=== PATIENT | male | born 1975 | race Caucasian/White ===

== ENCOUNTER 2024-04-25 19:31 | Inpatient (IN) | payer MEDICAID ==
[2024-04-25] MEDS: SODIUM CHLORIDE 0.9% 1,000 ML IV STA (21:19)
[2024-04-25 21:27] LABS: Basophils % (A) 0 %; Eosinophils # (A) 0.2 k/uL (0-0.7); Eosinophils % (A) 2 %; HCT 45.3 % (39.0-53.0); HGB 15.3 gm/dL (13.0-17.5); Lymphocytes # (A) 1.6 k/uL (1.0-4.8); Lymphocytes % (A) 13 %; MCH 29.7 pg (25.0-35.0); MCHC 33.8 g/dL (31.0-37.0); MCV 87.6 fL (80.0-100.0); Mean Platelet Volume 8.2; Monocytes # (A) 0.6 k/uL (0-1.0); Monocytes % (A) 5 %; Neutrophils # (A) 9.7 k/uL (1.3-7.7); Neutrophils % (A) 80 %; Platelet Count 233 k/uL (150-450); RBC 5.17 m/uL (4.30-5.90); RDW 13.7 % (11.5-15.5); WBC 12.2 k/uL (3.8-10.6)
--- NOTE | 2024-04-25 21:36 | ED ---
General Adult HPI - General Chief complaint: Skin/Abscess/Foreign Body Stated complaint: abd abcess Time Seen by Provider: 04/25/24 20:21 Source: patient, RN notes reviewed Mode of arrival: ambulatory Limitations: no limitations - History of Present Illness Initial comments: 48-year-old male presenting to the ED with a chief complaint of skin infection. Patient states he woke up with what he thought was a bug bite on his right lower abdomen 5 days ago. Since then he notes growing abscess which has spontaneously popped and has been draining purulent fluid. Denies fever and chills. However, patient states that his noticed redness to his abdomen starting yesterday which has since spread increasingly across his abdomen. 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 Patient also has a history of type 2 diabetes. - Related Data Allergies Allergy/AdvReac Type Severity Reaction Status Date / Time No Known Allergies Allergy Verified 04/25/24 19:47 Review of Systems ROS Statement: Those systems with pertinent positive or pertinent negative responses have been documented in the HPI. ROS Other: All systems not noted in ROS Statement are negative. Past Medical History Past Medical History: Asthma, Diabetes Mellitus, Hypertension Additional Past Medical History / Comment(s): arrythymia Past Surgical History: Appendectomy Past Psychological History: No Psychological Hx Reported Smoking Status: Never smoker Past Alcohol Use History: None Reported Past Drug Use History: None Reported General Exam Limitations: no limitations General appearance: alert, in no apparent distress Eye exam: Present: normal appearance Neck exam: Present: normal inspection Respiratory exam: Present: normal lung sounds bilaterally Cardiovascular Exam: Present: regular rate GI/Abdominal exam: Present: soft, other (2 x 2 abscess which is draining purulent fluid on his right lower abdomen with surrounding warmth erythema of the right abdomen measuring approximately 24 x 12 cm.) Neurological exam: Present: alert, oriented X3 Skin exam: Present: warm, dry Course Vital Signs 04/25/24 04/25/24 19:42 22:50 Temperature 98.0 F Pulse Rate 108 H 71 Respiratory 22 18 Rate Blood Pressure 131/86 119/73 O2 Sat by Pulse 97 95 Oximetry Medical Decision Making - Medical Decision Making Was pt. sent in by a medical professional or institution (, PA, [facility], urgent care, hospital, or snf...) When possible be specific @ -No Did you speak to anyone other than the patient for history (EMS, parent, family, police, friend...)? What history was obtained from this source @ -Discussed with sound physician who accepts admission. Did you review nursing and triage notes (agree or disagree)? Why? @ -I reviewed and agree with nursing and triage notes Were old charts reviewed (outside hosp., previous admission, EMS record, old EKG, old radiological studies, urgent care reports/EKG's, snf records)? Report findings @ -No old charts were reviewed Differential Diagnosis (chest pain, altered mental status, abdominal pain women, abdominal pain men, vaginal bleeding, weakness, fever, dyspnea, syncope, headache, dizziness, GI bleed, back pain, seizure, CVA, palpatations, mental health, musculoskeletal)? @ -Differential Musculoskeletal Muscular strain, contusion, ligament sprain, fracture, arthritis, septic arthritis, bursitis, cellulitis, muscle spasm, nerve compression, DVT, arterial occlusion, herpes zoster, electrolyte abnormality, tumor.... This is not meant to be in all inclusive list EKG interpreted by me (3pts min.). @ -None X-rays interpreted by me (1pt min.). @ -None done CT interpreted by me (1pt min.). @ -None done U/S interpreted by me (1pt. min.). @ -None done What testing was considered but not performed or refused? (CT, X-rays, U/S, labs)? Why? @ -None What meds were considered but not given or refused? Why? @ -None Did you discuss the management of the patient with other professionals (professionals i.e. , PA, [facility], lab, RT, psych nurse, protective services social worker, entertainment lawyer, teacher, security officer supervisor, case management director)? Give summary @ -No Was smoking cessation discussed for >3mins.? @ -No Was critical care preformed (if so, how long)? @ -No Were there social determinants of health that impacted care today? How? (Homelessness, low income, unemployed, alcoholism, drug addiction, transportation, low edu. Level, literacy, decrease access to med. care, care home, rehab)? @ -No Was there de-escalation of care discussed even if they declined (Discuss DNR or withdrawal of care, Hospice)? DNR status @ -No What co-morbidities impacted this encounter? (DM, HTN, Smoking, COPD, CAD, Cancer, CVA, ARF, Chemo, Hep., AIDS, mental health diagnosis, sleep apnea, morbid obesity)? @ -Diabetes Was patient admitted / discharged? Hospital course, mention meds given and route, prescriptions, significant lab abnormalities, going to OR and other pertinent info. @ -Admission 48-year-old male presenting to the ED with a chief complaint of skin infection. Patient reports 5 days ago woke up with what he thought was a bite to his right lower abdomen however since then has abscess which has spontaneously ruptured yesterday noted onset of large amount of erythema to his abdomen. Laboratory studies reviewed. CBC does show an elevated white blood cell count at 12.2. Karoline carmen panel significant for an elevated glucose at 348. UA shows no evidence of infection. Patient will be admitted to observation with IV antibiotics Undiagnosed new problem with uncertain prognosis? @ -No Drug Therapy requiring intensive monitoring for toxicity (Heparin, Nitro, Ins ulin, Cardizem)? @ -No Were any procedures done? @ -No Diagnosis/symptom? @ -Cellulitis of the abdomen Acute, or Chronic, or Acute on Chronic? @ -Acute Uncomplicated (without systemic symptoms) or Complicated (systemic symptoms)? @ -Uncomplicated Side effects of treatment? @ -No Exacerbation, Progression, or Severe Exacerbation? @ -No Poses a threat to life or bodily function? How? (Chest pain, [place], [place], pneumonia, PE, COPD, DKA, ARF, appy, cholecystitis, CVA, Diverticulitis, Homicidal, Suicidal, threat to staff... and all critical care pts) @ -No - Lab Data Result diagrams: 04/25/24 21:09 04/25/24 22:50 Lab Results 04/25/24 04/25/24 04/25/24 Range/Units 21:09 21:09 22:00 WBC 12.2 H (3.8-10.6) k/uL RBC 5.17 (4.30-5.90) m/uL Hgb 15.3 (13.0-17.5) gm/dL Hct 45.3 (39.0-53.0) % MCV 87.6 (80.0-100.0) fL MCH 29.7 (25.0-35.0) pg MCHC 33.8 (31.0-37.0) g/dL RDW 13.7 (11.5-15.5) % Plt Count 233 (150-450) k/uL MPV 8.2 Neutrophils % 80 % Lymphocytes % 13 % Monocytes % 5 % Eosinophils % 2 % Basophils % 0 % Neutrophils # 9.7 H (1.3-7.7) k/uL Lymphocytes # 1.6 (1.0-4.8) k/uL Monocytes # 0.6 (0-1.0) k/uL Eosinophils # 0.2 (0-0.7) k/uL Basophils # 0.0 (0-0.2) k/uL Sodium (137-145) mmol/L Potassium (3.5-5.1) mmol/L Chloride (98-107) mmol/L Carbon Dioxide (22-30) mmol/L Anion Gap mmol/L BUN (9-20) mg/dL Creatinine (0.66-1.25) mg/dL Est GFR (CKD-EPI)AfAm (>60 ml/min/1.73 sqM) Est GFR (CKD-EPI)NonAf (>60 ml/min/1.73 sqM) Glucose (74-99) mg/dL Plasma Lactic Acid Gold 0.9 (0.7-2.0) mmol/L Calcium (8.4-10.2) mg/dL Total Bilirubin (0.2-1.3) mg/dL AST (17-59) U/L ALT (4-49) U/L Alkaline Phosphatase (38-126) U/L Total Protein (6.3-8.2) g/dL Albumin (3.5-5.0) g/dL Urine Color Light Yellow Urine Appearance Clear (Clear) Urine pH 5.5 (5.0-8.0) Ur Specific [place] 1.016 (1.001-1.035) Urine Protein Negative (Negative) Urine Glucose (UA) 4+ H (Negative) Urine Ketones 1+ H (Negative) Urine Blood Negative (Negative) Urine Nitrite Negative (Negative) Urine Bilirubin Negative (Negative) Urine Urobilinogen <2.0 (<2.0) mg/dL Ur Leukocyte Esterase Negative (Negative) 04/25/24 Range/Units 22:50 WBC (3.8-10.6) k/uL RBC (4.30-5.90) m/uL Hgb (13.0-17.5) gm/dL Hct (39.0-53.0) % MCV (80.0-100.0) fL MCH (25.0-35.0) pg MCHC (31.0-37.0) g/dL RDW (11.5-15.5) % Plt Count (150-450) k/uL MPV Neutrophils % % Lymphocytes % % Monocytes % % Eosinophils % % Basophils % % Neutrophils # (1.3-7.7) k/uL Lymphocytes # (1.0-4.8) k/uL Monocytes # (0-1.0) k/uL Eosinophils # (0-0.7) k/uL Basophils # (0-0.2) k/uL Sodium 134 L (137-145) mmol/L Potassium 4.1 (3.5-5.1) mmol/L Chloride 104 (98-107) mmol/L Carbon Dioxide 20 L (22-30) mmol/L Anion Gap 10 mmol/L BUN 21 H (9-20) mg/dL Creatinine 0.70 (0.66-1.25) mg/dL Est GFR (CKD-EPI)AfAm >90 (>60 ml/min/1.73 sqM) Est GFR (CKD-EPI)NonAf >90 (>60 ml/min/1.73 sqM) Glucose 348 H (74-99) mg/dL Plasma Lactic Acid Gold (0.7-2.0) mmol/L Calcium 8.9 (8.4-10.2) mg/dL Total Bilirubin 1.0 (0.2-1.3) mg/dL AST 20 (17-59) U/L ALT 14 (4-49) U/L Alkaline Phosphatase 106 (38-126) U/L Total Protein 6.7 (6.3-8.2) g/dL Albumin 4.0 (3.5-5.0) g/dL Urine Color Urine Appearance (Clear) Urine pH (5.0-8.0) Ur Specific [place] (1.001-1.035) Urine Protein (Negative) Urine Glucose (UA) (Negative) Urine Ketones (Negative) Urine Blood (Negative) Urine Nitrite (Negative) Urine Bilirubin (Negative) Urine Urobilinogen (<2.0) mg/dL Ur Leukocyte Esterase (Negative) Disposition Clinical Impression: Cellulitis Disposition: ADMITTED IP TO THIS HOSP Condition: Good Referrals: Amy Ruiz DO [Primary Care Provider] - 1-2 days Time of Disposition: 23:00
[2024-04-25 22:38] LABS: Appearance,Urine Clear (Clear); Bilirubin,Urine Negative (Negative); Blood,Urine Negative (Negative); Color,Urine Light Yellow; Glucose,Urine (UA) 4+ (Negative); Ketones,Urine 1+ (Negative); Leukocyte Esterase,Urine Negative (Negative); Nitrite,Urine Negative (Negative); PH, Urine 5.5 (5.0-8.0); Protein,Urine Negative (Negative); Specific Gravity,Urine 1.016 (1.001-1.035); Urobilinogen,Urine <2.0 mg/dL (<2.0)
[2024-04-25 23:30] LABS: ALT 14 U/L (4-49); AST 20 U/L (17-59); African American GFR (CKD) >90 (>60 ml/min/1.73 sqM); Alkaline Phosphatase 106 U/L (38-126); Anion Gap 10 mmol/L; Blood Urea Nitrogen 21 mg/dL (9-20); Calcium 8.9 mg/dL (8.4-10.2); Carbon Dioxide 20 mmol/L (22-30); Chloride 104 mmol/L (98-107); Glucose 348 mg/dL (74-99); Non-African American GFR(CKD) >90 (>60 ml/min/1.73 sqM); Potassium 4.1 mmol/L (3.5-5.1); Sodium 134 mmol/L (137-145); Total Protein 6.7 g/dL (6.3-8.2)
[2024-04-26] MEDS ORDERED: NALOXONE 0.4 MG/ML 1 ML VIAL IV PRN (00:27)
[2024-04-26] MEDS ORDERED: HYDROmorphone 0.5 MG/0.5 ML SYRINGE IVP PRN (00:27)
[2024-04-26] MEDS ORDERED: DEXTROSE 50% SYRINGE 50 ML IVP PRN ×2 (00:28)
[2024-04-26] MEDS: SODIUM CHLORIDE 0.9% 1,000 ML IV SCH (00:36)
[2024-04-26] MEDS ORDERED: VANCOMYCIN IV PER PHARMACY 1 EACH MISC MISCELLANE PRN (01:18)
--- NOTE | 2024-04-26 02:12 | P.HPIM ---
History of Present Illness H&P Date: 04/26/24 Patient is a 48-year-old male with a PMH of type II DM who presents to the emergency room with complaints of a skin ulcer. Patient reports that he initially noticed a small pimple which he attributed to a insect bite roughly 6 days ago on his right lower abdomen. He denies finding a tick or any other obvious cause of the lesion. The surrounding area gradually became more red over the past 2 days and he noticed a swelling in the region which eventually burst earlier today, with purulent drainage. He reports that the surrounding involved erythematous area had essentially doubled over the past 24 hours. Denies experiencing fever or chills. Also denies chest discomfort, shortness of breath, cough, nausea, vomiting, abdominal pain, diarrhea. Patient does report that his diabetes is somewhat poorly controlled and that his last A1c was around 10. ED documentation reviewed and case discussed with ED provider. Review of systems: Pertinent positives and negatives as discussed in HPI, a complete review of systems was performed and all other systems are negative. Physical examination: Vital signs reviewed General: non toxic, no distress, appears at stated age Derm: Right lower quadrant ulcer 3 cm ulcer with large surrounding area of erythema around 14 inches with some palpable fluctuance under the ulcer noted, warm Head: atraumatic, normocephalic, symmetric Eyes: EOMI, no lid lag, anicteric sclera, pupils equal round reactive to light ENT: Nose and ears atraumatic Neck: No cervical lymphadenopathy, trachea midline, supple Mouth: no lip lesion, mucus membranes moist Cardiovascular: S1S2 reg, no murmur, positive dorsalis pedis pulse bilateral, no edema Lungs: CTA bilateral, no rhonchi, no rales, no accessory muscle use Abdominal: soft, nontender to palpation, no guarding Ext: muscle strength 5 out of 5 in all 4 extremities grossly, no gross muscle atrophy, no contractures, Neuro: CN II-XI grossly intact, no gross focal neuro deficits Psych: Alert, oriented, appropriate affect Assessment: Right lower abdomen cellulitis with likely abscess following suspected insect bite Chronic conditions: Type II DM, poorly controlled Imaging: None performed Data Review: WBC count 12.2, hemoglobin 15.3, sodium 134, CO2 20, BUN 21, glucose 348, lactic acid 0.9 with UA showing 4+ glucose and 1+ ketones Plan: Start patient on vancomycin and ceftriaxone Follow-up blood and wound cultures Continue IV fluids normal saline 75 cc/h Infectious disease consulted General surgery consulted for possible I&D for likely abscess Obtain ultrasound for localization Insulin sliding scale and blood glucose monitoring Check A1c DVT prophylaxis: Lovenox subcu The patient is admitted with an anticipated fewer than 2 midnight stay for evaluation of cellulitis CODE STATUS: Full Code Discussed with: Patient Anticipated discharge place: Home Past Medical History Past Medical History: Asthma, Diabetes Mellitus, Hypertension Additional Past Medical History / Comment(s): arrythymia tachycardia 125 History of Any Multi-Drug Resistant Organisms: None Reported Past Surgical History: Appendectomy Past Anesthesia/Blood Transfusion Reactions: No Reported Reaction Past Psychological History: Depression Smoking Status: Never smoker Past Alcohol Use History: None Reported Past Drug Use History: None Reported - Past Family History Father Family Medical History: No Reported History Mother Family Medical History: Hypertension Medications and Allergies Allergies Allergy/AdvReac Type Severity Reaction Status Date / Time bee venom protein (honey bee) Allergy Anaphylaxis Verified 04/26/24 01:50 Physical Exam Vitals: Vital Signs Temp Pulse Resp BP Pulse Ox 04/25/24 22:50 71 18 119/73 95 04/25/24 19:42 98.0 F 108 H 22 131/86 97 Intake and Output 04/25/24 04/25/24 04/26/24 14:59 22:59 06:59 Other: Weight 123.15 kg 123.15 kg Results CBC & Chem 7: 04/25/24 21:09 04/25/24 22:50 Labs: Abnormal Lab Results - Last 24 Hours (Table) 04/25/24 04/25/24 04/25/24 Range/Units 21:09 22:00 22:50 WBC 12.2 H (3.8-10.6) k/uL Neutrophils # 9.7 H (1.3-7.7) k/uL Sodium 134 L (137-145) mmol/L Carbon Dioxide 20 L (22-30) mmol/L BUN 21 H (9-20) mg/dL Glucose 348 H (74-99) mg/dL Urine Glucose (UA) 4+ H (Negative) Urine Ketones 1+ H (Negative) Thrombosis Risk Factor Assmnt - Choose All That Apply Any of the Below Risk Factors Present?: Yes Each Factor Represents 1 point: Age 41-60 years, Obesity (BMI >25) Other Risk Factors: No Other congenital or acquired thrombophilia - If yes, enter type in comment: No Thrombosis Risk Factor Assessment Total Risk Factor Score: 2 Thrombosis Risk Factor Assessment Level: Low Risk
[2024-04-26] MEDS: VANCOMYCIN 2,000 MG in SODIUM CHLORIDE 0.9% 500 ML 500 ML IVPB ONE (03:14)
[2024-04-26] MEDS: INSULIN ASPART (NovoLOG) 100 UNIT/ML VIAL SQ SCH ×2 (05:58→06:32)
[2024-04-26 06:10] LABS: Glucose,Whole Blood 273 mg/dL (70-110)
[2024-04-26] MEDS: ENOXAPARIN 40 MG/0.4 ML SYRINGE SQ SCH (08:23)
[2024-04-26] MEDS: ONDANSETRON 4 MG/2 ML VIAL IVP PRN (08:23)
[2024-04-26] MEDS: ACETAMINOPHEN TAB 325 MG TAB PO PRN (09:22)
[2024-04-26] MEDS: VANCOMYCIN 1,750 MG in SODIUM CHLORIDE 0.9% 500 ML 500 ML IVPB SCH (11:21)
--- NOTE | 2024-04-26 11:53 | US ---
EXAMINATION TYPE: US abdomen limited DATE OF EXAM: 04/26/2024 COMPARISON: NONE CLINICAL INDICATION: Male, 48 years old with history of R lower abd ulcer with suspected abscess; RLQ abdominal ulcer x 5 days. Suspected abscess. TECHNIQUE: Scanned right lower abdomen at area of concern. FINDINGS: Hypoechoic, indistinct area with edema seen superficially at area of concern measurin. 8 x 3.6 x 0.8 cm. No clear fluid collection visualized at this time. IMPRESSION: Subcutaneous edema possibly early abscess formation. No focal fluid collection.
[2024-04-26 12:02] LABS: HCT 46.8 % (39.0-53.0); HGB 16.3 gm/dL (13.0-17.5); MCHC 34.8 g/dL (31.0-37.0); MCV 86.3 fL (80.0-100.0); Mean Platelet Volume 8.2; Platelet Count 255 k/uL (150-450); RBC 5.43 m/uL (4.30-5.90); RDW 13.4 % (11.5-15.5); WBC 17.4 k/uL (3.8-10.6)
[2024-04-26 12:27] LABS: Glucose,Whole Blood 276 mg/dL (70-110)
[2024-04-26 12:55] LABS: ALT 15 U/L (4-49); AST 20 U/L (17-59); African American GFR (CKD) >90 (>60 ml/min/1.73 sqM); Albumin 4.5 g/dL (3.5-5.0); Albumin/Globulin Ratio 1.5; Alkaline Phosphatase 114 U/L (38-126); Anion Gap 12 mmol/L; Blood Urea Nitrogen 14 mg/dL (9-20); Calcium 9.6 mg/dL (8.4-10.2); Carbon Dioxide 22 mmol/L (22-30); Chloride 104 mmol/L (98-107); Globulin 3.1 g/dL; Glucose 243 mg/dL (74-99); Magnesium 1.3 mg/dL (1.6-2.3); Non-African American GFR(CKD) >90 (>60 ml/min/1.73 sqM); Potassium 4.3 mmol/L (3.5-5.1); Sodium 138 mmol/L (137-145); Total Bilirubin 1.3 mg/dL (0.2-1.3); Total Protein 7.6 g/dL (6.3-8.2)
[2024-04-26 13:34] LABS: C Reactive Protein 2.6 mg/dL (<1.0)
--- NOTE | 2024-04-26 14:06 | P.GSCN ---
History of Present Illness Consult date: 04/26/24 History of present illness: CHIEF COMPLAINT: Abdominal wall cellulitis HISTORY OF PRESENT ILLNESS: The patient is a 48 year old male who presents after 1 week history of right lower abdominal swelling with redness. Patient is a healthcare provider. Patient reports going to his local urgent care who did not direct him to the hospital. Since admission, initial white blood cell count was 12,000. This morning his white count has elevated over 17,000. Blood sugars poorly controlled over 250. General surgery is consulted due to new onset abdominal wall cellulitis. Patient is not aware of any insect bites. Patient has been on vancomycin on admission and reports nausea to the medication. PAST MEDICAL HISTORY: See list and reviewed PAST SURGICAL HISTORY: See list and reviewed MEDICATIONS: See list and reviewed ALLERGIES: See list and reviewed SOCIAL HISTORY: See list and reviewed FAMILY HISTORY: See list and reviewed REVIEW OF ORGAN SYSTEMS: CONSTITUTIONAL: No fevers or chills. Body mass index 36.8, morbid obesity. EYES: Denies any trouble with vision. Wears glasses. HEENT: No difficulties with hearing. No nosebleeds. No difficulty swallowing. RESPIRATORY: Denies pneumonia. Denies any troubles with breathing or dyspnea on exertion. CARDIOVASCULAR: Denies any chest pain, palpitations, or recent heart attacks. Hypertensive heart disease. GASTROINTESTINAL: Denies fatty food intolerance. Denies change in bowel habits and gas bloat. GENITOURINARY: Denies any blood in urine or increased urinary frequency. NEUROLOGICAL: Denies any numbness or tingling along the distal extremities. No seizure disorders or headaches. MUSCULOSKELETAL: Denies any back pain, stiffness or joint arthritis. SKIN: No current skin cancer. No rash. PSYCHIATRIC: Denies suicidal thoughts. Takes Zoloft for depression. ENDOCRINE: Denies current thyroid disorders. Has diabetes type 2. HEME/LYMPHATIC: Denies any lumps and bumps around the neck. No recent deep venous thrombosis. ALLERGY/IMMUNOLOGY: No immunoglobulin therapy. No immune deficiencies. BREAST: Denies current breast lumps, pain or nipple discharge. PHYSICAL EXAM: VITALS: Reviewed CONSTITUTIONAL: Well developed and in no acute distress. EYES: Conjuctivae without sclera icterus. Extraocular movements grossly intact. HEAD, EARS, NOSE, THROAT: Moist buccal mucosa. Head is atraumatic, normocephalic. Hears conversational speech. No nasal drainage. NECK: Supple. No JV distention. No thyroidomegaly. RESPIRATORY: Non-labored respirations and equal bilateral excursions. No gross wheezes. CARDIOVASCULAR: Palpable 2+ radial pulses. ABDOMEN: Right lower quadrant large indurated erythematous area over 20 x 15 cm. Localized less than 1 cm ulceration of the right lower quadrant. No peritonitis. LYMPH: No neck lymphadenopathy. MUSCULOSKELETAL: No clubbing cyanosis or edema SKIN: Warm and well perfused with good skin turgor. NEUROLOGIC: Cranial nerves II through XII grossly intact. No focal or lateralizing signs. PSYCH: Appropriate affect. Alert and oriented to person, place and time. Displays appropriate insight. CLINCAL LABS: Reviewed. WBC elevated 12,000 to over 17,000 today. Blood sugar glucose over 250. Hemoglobin A1c not available. RADIOLOGY: Report reviewed. Soft tissue abdominal wall ultrasound report consistent with no identifiable drainable fluid collection. ASSESSMENT: 1. Abdominal wall cellulitis, right lower quadrant 2. Sepsis due to abdominal wall cellulitis 3. Diabetes type 2 with hyperglycemia 4. Morbid obesity due to excess calories, BMI 36.8 5. Hypertensive heart disease. PLAN: 1. Since hospitalization, patient has been on vancomycin however his white blood cell count has trended upward from 12,000 and 17,000. Patient offered incision and drainage with debridement of the abdominal wall. 2. N.p.o. after lunch tomorrow. May have breakfast tomorrow. 3. Recommend infectious disease consultation due to worsening leukocytosis despite being on vancomycin. 4. Will obtain deep tissue cultures during incision and drainage. 5. Will obtain hemoglobin A1c for overall review of glycemic control 6. Plan discussed with patient who is agreeable to proceed with incision and drainage as IV antibiotics is not effective due to worsening leukocytosis Thank you for this kind consultation. Past Medical History Past Medical History: Asthma, Diabetes Mellitus, Hypertension Additional Past Medical History / Comment(s): arrythymia tachycardia 125 History of Any Multi-Drug Resistant Organisms: None Reported Past Surgical History: Appendectomy Past Anesthesia/Blood Transfusion Reactions: No Reported Reaction Past Psychological History: Depression Smoking Status: Never smoker Past Alcohol Use History: None Reported Past Drug Use History: None Reported - Past Family History Father Family Medical History: No Reported History Mother Family Medical History: Hypertension Medications and Allergies Home Medications Medication Instructions Recorded Confirmed Type Ibuprofen [Motrin Ib] 800 mg PO Q8H PRN 04/26/24 04/26/24 History Magnesium(Unknown Dose) 1 tab PO DAILY PRN 04/26/24 04/26/24 History Metoprolol Succinate [Toprol XL] 50 mg PO DAILY 04/26/24 04/26/24 History Multivitamins, Thera [Multivitamin 1 tab PO DAILY 04/26/24 04/26/24 History (formulary)] Omeprazole Magnesium [PriLOSEC OTC] 20 mg PO DAILY 04/26/24 04/26/24 History Sertraline [Zoloft] 100 mg PO DAILY 04/26/24 04/26/24 History lisinopriL [Zestril] 20 mg PO DAILY 04/26/24 04/26/24 History metFORMIN HCL [Glucophage] 1,000 mg PO AC-BID 04/26/24 04/26/24 History Allergies Allergy/AdvReac Type Severity Reaction Status Date / Time bee venom protein (honey bee) Allergy Anaphylaxis Verified 04/26/24 12:20 Surgical - Exam Vital Signs Temp Pulse Resp BP Pulse Ox 98.0 F 108 H 22 131/86 97 04/25/24 19:42 04/25/24 19:42 04/25/24 19:42 04/25/24 19:42 04/25/24 19:42 Results - Labs 04/26/24 11:45 04/26/24 11:45 Abnormal Lab Results - Last 24 Hours (Table) 04/25/24 04/25/24 04/25/24 Range/Units 21:09 22:00 22:50 WBC 12.2 H (3.8-10.6) k/uL Neutrophils # 9.7 H (1.3-7.7) k/uL Sodium 134 L (137-145) mmol/L Carbon Dioxide 20 L (22-30) mmol/L BUN 21 H (9-20) mg/dL Creatinine (0.66-1.25) mg/dL Glucose 348 H (74-99) mg/dL POC Glucose (mg/dL) (70-110) mg/dL Magnesium (1.6-2.3) mg/dL C-Reactive Protein (<1.0) mg/dL Urine Glucose (UA) 4+ H (Negative) Urine Ketones 1+ H (Negative) 04/26/24 04/26/24 04/26/24 Range/Units 06:09 11:45 11:45 WBC 17.4 H (3.8-10.6) k/uL Neutrophils # (1.3-7.7) k/uL Sodium (137-145) mmol/L Carbon Dioxide (22-30) mmol/L BUN (9-20) mg/dL Creatinine 0.62 L (0.66-1.25) mg/dL Glucose 243 H (74-99) mg/dL POC Glucose (mg/dL) 273 H (70-110) mg/dL Magnesium 1.3 L (1.6-2.3) mg/dL C-Reactive Protein 2.6 H (<1.0) mg/dL Urine Glucose (UA) (Negative) Urine Ketones (Negative) 04/26/24 Range/Units 12:17 WBC (3.8-10.6) k/uL Neutrophils # (1.3-7.7) k/uL Sodium (137-145) mmol/L Carbon Dioxide (22-30) mmol/L BUN (9-20) mg/dL Creatinine (0.66-1.25) mg/dL Glucose (74-99) mg/dL POC Glucose (mg/dL) 276 H (70-110) mg/dL Magnesium (1.6-2.3) mg/dL C-Reactive Protein (<1.0) mg/dL Urine Glucose (UA) (Negative) Urine Ketones (Negative) Diabetes panel 04/25/24 04/26/24 Range/Units 22:50 11:45 Sodium 134 L 138 (137-145) mmol/L Potassium 4.1 4.3 (3.5-5.1) mmol/L Chloride 104 104 (98-107) mmol/L Carbon Dioxide 20 L 22 (22-30) mmol/L BUN 21 H 14 (9-20) mg/dL Creatinine 0.70 0.62 L (0.66-1.25) mg/dL Glucose 348 H 243 H (74-99) mg/dL Calcium 8.9 9.6 (8.4-10.2) mg/dL AST 20 20 (17-59) U/L ALT 14 15 (4-49) U/L Alkaline Phosphatase 106 114 (38-126) U/L Total Protein 6.7 7.6 (6.3-8.2) g/dL Albumin 4.0 4.5 (3.5-5.0) g/dL Calcium panel 04/25/24 04/26/24 Range/Units 22:50 11:45 Calcium 8.9 9.6 (8.4-10.2) mg/dL Albumin 4.0 4.5 (3.5-5.0) g/dL Pituitary panel 04/25/24 04/26/24 Range/Units 22:50 11:45 Sodium 134 L 138 (137-145) mmol/L Potassium 4.1 4.3 (3.5-5.1) mmol/L Chloride 104 104 (98-107) mmol/L Carbon Dioxide 20 L 22 (22-30) mmol/L BUN 21 H 14 (9-20) mg/dL Creatinine 0.70 0.62 L (0.66-1.25) mg/dL Glucose 348 H 243 H (74-99) mg/dL Calcium 8.9 9.6 (8.4-10.2) mg/dL Adrenal panel 04/25/24 04/26/24 Range/Units 22:50 11:45 Sodium 134 L 138 (137-145) mmol/L Potassium 4.1 4.3 (3.5-5.1) mmol/L Chloride 104 104 (98-107) mmol/L Carbon Dioxide 20 L 22 (22-30) mmol/L BUN 21 H 14 (9-20) mg/dL Creatinine 0.70 0.62 L (0.66-1.25) mg/dL Glucose 348 H 243 H (74-99) mg/dL Calcium 8.9 9.6 (8.4-10.2) mg/dL Total Bilirubin 1.0 1.3 (0.2-1.3) mg/dL AST 20 20 (17-59) U/L ALT 14 15 (4-49) U/L Alkaline Phosphatase 106 114 (38-126) U/L Total Protein 6.7 7.6 (6.3-8.2) g/dL Albumin 4.0 4.5 (3.5-5.0) g/dL
--- NOTE | 2024-04-26 16:26 | P.PN ---
Subjective Progress Note Date: 04/26/24 Hospital course: Patient is a 48-year-old male with a past medical history of hypertension, atrial tachycardia, GERD, type II [id number] diabetes mellitus, and depression. He presented to the hospital on 04/25/2024 secondary to skin abscess and concerns of surrounding infection. Upon arrival to our facility, patient underwent evaluation in the emergency department. Vital signs upon arrival show blood pressure 131/86, heart rate 108, respiratory rate 22, temp 98.0 F, and SpO2 of 97% on room air. Labs completed and reviewed. CBC showing leukocytosis with WBC count of 12.2. BMP showing hyponatremia with sodium 134 and hypocarbia with bicarb of 20 with mild prerenal azotemia with BUN of 21. Blood glucose was elevated at 348. Liver profile unremarkable. Urinalysis positive for ketones and glucose negative for infection. Patient was admitted under services with consultation to general surgery and infectious disease. Abdominal ultrasound was completed showing subcutaneous edema with early abscess formation underwent definitive focal fluid collection reported. Physical exam: Vital signs reviewed and stable. General: Nontoxic, no distress and appears stated age. Derm: Skin warm and dry, normal coloration for ethnicity. Right lower quadrant ulcer 3 cm ulcer with large surrounding area of erythema around 14 inches with some palpable fluctuance under the ulcer noted, warm. No discharge/drainage at this time. Surrounding erythema outlined with skin marker. Head: Atraumatic, normocephalic and symmetric. Eyes: EOMs intact, no lid lag, and anicteric sclera Mouth: no lip lesions, mucus membranes moist Cardiovascular: regular rate and rhythm with normal S1S2, no murmur, positive posterior tibial pulses bilaterally, and cap refill < 2 seconds. Lungs: Respirations even, regular, and unlabored on room air. Lungs CTA bilaterally, no rhonchi, no rales, no wheezing, and no accessory muscle usage. Abdominal: soft, nontender to palpation, no guarding, no appreciable organomegaly Ext: ROM intact. No gross muscle atrophy, no edema, no contractures Neuro: Speech clear, face symmetrical and CN II-XII grossly intact with no noted focal neuro deficits Psych: Alert and oriented to person, place, time, and situation. Appropriate and pleasant affect. Assessment and Plan of Care: Abdominal abscess with surrounding abdominal wall cellulitis Poorly controlled diabetes mellitus with hyperglycemia Leukocytosis, worsening -Abdominal ultrasound was completed showing subcutaneous edema with early abscess formation underwent definitive focal fluid collection reported. -Continue IV antibiotics with Rocephin 2 g every 24 hours and vancomycin 1750 mg every 8 hours. Will monitor renal function closely to monitor for any signs/symptoms of vancomycin associated renal toxicity. -Infectious disease consulted, appreciate recommendations -General surgery consulted for possible I&D. -Symptomatic care and pain management with Tylenol 650 mg every 6 hours as needed for mild pain/fever, Francis 5/325 mg every 4 hours as needed for moderate pain, and Dilaudid 0.5 mg IVP every 3 hours as needed for severe pain. -Patient placed on glycemic protocol with NovoLog sliding scale. -Hemoglobin A1c to be obtained. -Gentle IV fluid hydration. -CRP elevated at 2.6. -Follow-up on blood cultures and wound cultures. Hypomagnesemia Magnesium 1.3. Orders placed for magnesium sulfate 3 g IVPB. Will continue to monitor for improvement/resolution with repeat magnesium levels with a.m. labs. Will place additional orders as indicated based upon these findings. History of atrial tachycardia -Continue daily medication regimen with metoprolol succinate 50 mg daily. Hypertension -Continue daily medication regimen with lisinopril 20 mg daily and metoprolol 50 mg daily. GERD -Continue daily medication regimen with Protonix 40 mg daily. Depression -Continue daily medication regimen with Zoloft 100 mg daily. Data and imaging reviewed: -Abdominal ultrasound was completed showing subcutaneous edema with early abscess formation underwent definitive focal fluid collection reported. -Vital signs reviewed. Blood pressure 136/84, heart rate 86, respiratory rate 20, temp 98.5 F, and SpO2 of 97% on room air. -Morning labs completed and reviewed. CBC showing worsening leukocytosis from previous 12.2 up to 17.4 this morning. BMP was unremarkable with the exception of continued hyperglycemia with glucose of 243. Magnesium was low at 1.3. CRP elevated at 2.6. Liver profile unremarkable. CODE STATUS: Full code DVT prophylaxis: Lovenox Anticipated discharge date: Pending clinical course Anticipated discharge place: Home Patient was seen independently by Nurse Pracitioner. This document was prepared using [employer] dictation software. Please allow for errors in hospital housekeeper, while rare they do occur. Danny Foote NP rendered care for this patient independently, reviewed the findings and plan as documented in the note above. I did not physically speak with or examine the patient on this date. Objective - Vital Signs Vital signs: Vital Signs Temp 98.5 F 04/26/24 07:00 Pulse 86 04/26/24 07:00 Resp 20 04/26/24 07:00 BP 136/84 04/26/24 07:00 Pulse Ox 97 04/26/24 07:00 FiO2 Intake & Output 04/25/24 04/26/24 04/26/24 18:59 06:59 18:59 Weight 123.15 kg Other: # Voids 2 - Labs CBC & Chem 7: 04/27/24 05:59 04/27/24 05:59 Labs: Abnormal Lab Results - Last 24 Hours (Table) 04/25/24 04/25/24 04/25/24 Range/Units 21:09 22:00 22:50 WBC 12.2 H (3.8-10.6) k/uL Neutrophils # 9.7 H (1.3-7.7) k/uL Sodium 134 L (137-145) mmol/L Carbon Dioxide 20 L (22-30) mmol/L BUN 21 H (9-20) mg/dL Glucose 348 H (74-99) mg/dL POC Glucose (mg/dL) (70-110) mg/dL Urine Glucose (UA) 4+ H (Negative) Urine Ketones 1+ H (Negative) 04/26/24 Range/Units 06:09 WBC (3.8-10.6) k/uL Neutrophils # (1.3-7.7) k/uL Sodium (137-145) mmol/L Carbon Dioxide (22-30) mmol/L BUN (9-20) mg/dL Glucose (74-99) mg/dL POC Glucose (mg/dL) 273 H (70-110) mg/dL Urine Glucose (UA) (Negative) Urine Ketones (Negative)
[2024-04-26] MEDS: SERTRALINE 100 MG TAB PO SCH (16:36)
[2024-04-26] MEDS: METOPROLOL SUCCINATE (ER) 50 MG TAB.ER.24H PO SCH (16:36)
[2024-04-26] MEDS: PANTOPRAZOLE 40 MG TABLET PO SCH (16:37)
[2024-04-26] MEDS: lisinopriL 20 MG TAB PO SCH (16:37)
[2024-04-26] MEDS: MULTIVITAMINS, THERA 1 EACH TAB PO SCH (16:37)
[2024-04-26 17:44] LABS: Glucose,Whole Blood 274 mg/dL (70-110)
[2024-04-26] MEDS: MAGNESIUM SULFATE-D5W PMX 1 GM in DEXTROSE/WATER 1 100ML.BAG IVPB SCH (17:53)
[2024-04-26 20:11] LABS: Glucose,Whole Blood 379 mg/dL (70-110)
[2024-04-27 05:45] LABS: Glucose,Whole Blood 269 mg/dL (70-110)
[2024-04-27] MEDS ORDERED: ceFAZolin 3 GM in SODIUM CHLORIDE 0.9% 100 ML IVPB PRN (07:00)
[2024-04-27 07:36] LABS: Glucose,Whole Blood 245 mg/dL (70-110)
--- NOTE | 2024-04-27 07:41 | P.CONS ---
History of Present Illness - Reason for Consult Consult date: 04/26/24 Cellulitis Requesting physician: Kentrell Hendrickson - Chief Complaint Abdominal wall swelling and redness x few days - History of Present Illness Patient is a 48-year-old male with a past medical history significant for diabetes mellitus hypertension asthma depression, patient presenting to the hospital for evaluation of right lower abdominal wall pain swelling and redness apparently started about 5 days ago mostly has an irritation he is not very clear about any bug bite or trauma that he has progressed to get worse becoming more swollen red and painful patient describes the pain to be sharp moderate intensity without radiation with associated swelling redness no significant purulent drainage with the symptoms the patient has been evaluated on presentation to the hospital patient was afebrile and no fever have been recorded subsequently patient was not tachycardic hypotensive or hypoxic patient did have a white count of 12 point 2 repeat is 17.4 creatinine 0.62 liver isms are normal CRP is 2.6 urine has been negative local and blood cultures obtained which are currently pending patient did have abdominal ultrasound subcutaneous edema possibly early abscess formation no focal fluid collection patient was started on vancomycin pharmacy to dose infectious disease was consulted for further management of antibiotic therapy also received a dose of ceftriaxone Review of Systems Positive point and negatives has been mentioned in the HPI, complete review of systems was performed and all other systems are negative Past Medical History Past Medical History: Asthma, Diabetes Mellitus, Hypertension Additional Past Medical History / Comment(s): arrythymia tachycardia 125 History of Any Multi-Drug Resistant Organisms: None Reported Past Surgical History: Appendectomy Past Anesthesia/Blood Transfusion Reactions: No Reported Reaction Past Psychological History: Depression Smoking Status: Never smoker Past Alcohol Use History: None Reported Past Drug Use History: None Reported - Past Family History Father Family Medical History: No Reported History Mother Family Medical History: Hypertension Medications and Allergies Home Medications Medication Instructions Recorded Confirmed Type Ibuprofen [Motrin Ib] 800 mg PO Q8H PRN 04/26/24 04/26/24 History Magnesium(Unknown Dose) 1 tab PO DAILY PRN 04/26/24 04/26/24 History Metoprolol Succinate [Toprol XL] 50 mg PO DAILY 04/26/24 04/26/24 History Multivitamins, Thera [Multivitamin 1 tab PO DAILY 04/26/24 04/26/24 History (formulary)] Omeprazole Magnesium [PriLOSEC OTC] 20 mg PO DAILY 04/26/24 04/26/24 History Sertraline [Zoloft] 100 mg PO DAILY 04/26/24 04/26/24 History lisinopriL [Zestril] 20 mg PO DAILY 04/26/24 04/26/24 History metFORMIN HCL [Glucophage] 1,000 mg PO AC-BID 04/26/24 04/26/24 History Allergies Allergy/AdvReac Type Severity Reaction Status Date / Time bee venom protein (honey bee) Allergy Anaphylaxis Verified 04/26/24 12:20 Physical Exam Vitals: Vital Signs Temp Pulse Pulse Resp BP BP BP 04/26/24 08:23 86 20 04/26/24 07:00 98.5 F 86 20 136/84 04/26/24 01:06 97.8 F 80 16 128/76 04/25/24 22:50 71 18 119/73 04/25/24 19:42 98.0 F 108 H 22 131/86 Pulse Ox 04/26/24 08:23 04/26/24 07:00 97 04/26/24 01:06 96 04/25/24 22:50 95 04/25/24 19:42 97 Intake and Output 04/25/24 04/26/24 04/26/24 22:59 06:59 14:59 Other: Voiding Method Toilet # Voids 2 Weight 123.15 kg 123.15 kg GENERAL DESCRIPTION: Middle-aged male lying in bed, no distress. No tachypnea or accessory muscle of respiration use. HEENT: Shows Pallor , no scleral icterus. Oral mucous membrane is dry. No pharyngeal erythema or thrush NECK: Trachea central, no thyromegaly. LUNGS: Unlabored breathing. Clear to auscultation anteriorly. No wheeze or crackle. HEART: S1, S2, regular rate and rhythm. No loud murmur ABDOMEN: Soft, right lower abdominal wall with an area of induration swelling and redness some drainage on the dressing EXTREMITIES: No edema of feet. SKIN: No rash, no masses palpable. NEUROLOGICAL: The patient is awake, alert, oriented x3, mood and affect normal. Results CBC & Chem 7: 04/26/24 11:45 04/26/24 11:45 Labs: Abnormal Lab Results - Last 24 Hours (Table) 07/01/1404/25/24 04/25/24 Range/Units 21:09 22:00 22:50 WBC 12.2 H (3.8-10.6) k/uL Neutrophils # 9.7 H (1.3-7.7) k/uL Sodium 134 L (137-145) mmol/L Carbon Dioxide 20 L (22-30) mmol/L BUN 21 H (9-20) mg/dL Creatinine (0.66-1.25) mg/dL Glucose 348 H (74-99) mg/dL POC Glucose (mg/dL) (70-110) mg/dL Magnesium (1.6-2.3) mg/dL Urine Glucose (UA) 4+ H (Negative) Urine Ketones 1+ H (Negative) 04/26/24 04/26/24 04/26/24 Range/Units 06:09 11:45 11:45 WBC 17.4 H (3.8-10.6) k/uL Neutrophils # (1.3-7.7) k/uL Sodium (137-145) mmol/L Carbon Dioxide (22-30) mmol/L BUN (9-20) mg/dL Creatinine 0.62 L (0.66-1.25) mg/dL Glucose 243 H (74-99) mg/dL POC Glucose (mg/dL) 273 H (70-110) mg/dL Magnesium 1.3 L (1.6-2.3) mg/dL Urine Glucose (UA) (Negative) Urine Ketones (Negative) 04/26/24 Range/Units 12:17 WBC (3.8-10.6) k/uL Neutrophils # (1.3-7.7) k/uL Sodium (137-145) mmol/L Carbon Dioxide (22-30) mmol/L BUN (9-20) mg/dL Creatinine (0.66-1.25) mg/dL Glucose (74-99) mg/dL POC Glucose (mg/dL) 276 H (70-110) mg/dL Magnesium (1.6-2.3) mg/dL Urine Glucose (UA) (Negative) Urine Ketones (Negative) Assessment and Plan (1) Abdominal wall abscess Current Visit: Yes Status: Acute Code(s): L02.211 - CUTANEOUS ABSCESS OF ABDOMINAL WALL SNOMED Code(s): 24061763 (2) Abdominal wall cellulitis Current Visit: Yes Status: Acute Code(s): L03.311 - CELLULITIS OF ABDOMINAL WALL SNOMED Code(s): 22135319 (3) Leukocytosis Current Visit: Yes Status: Acute Code(s): D72.829 - ELEVATED WHITE BLOOD CELL COUNT, UNSPECIFIED SNOMED Code(s): 602028967 Plan: 1patient presented to hospital with right lower quadrant abdominal wall pain swelling and redness with the area of induration and some in fluid collection on the ultrasound concerning for abscess and cellulitis likely from gram-positive skin norma 2-marked area of the redness 3-await possible surgical debridement and drainage 4-vancomycin pharmacy to dose target trough of 15 while watching kidney function and Vanco trough closely Question concern answered We will follow on clinical condition and cultures to further adjust medication if needed Thank you for this consultation we will follow the patient along with you Dictation was produced using [employer] dictation software. please excuse any grammatical, word or spelling errors. Time with Patient: Greater than 30
[2024-04-27 08:42] LABS: Basophils # (A) 0.04 X 10*3/uL (0.00-0.10); Basophils % (A) 0.4 %; Eosinophils # (A) 0.27 X 10*3/uL (0.04-0.35); Eosinophils % (A) 2.6 %; HCT 41.7 % (39.6-50.0); Lymphocytes # (A) 0.87 X 10*3/uL (0.90-5.00); Lymphocytes % (A) 8.3 %; MCH 28.5 pg (27.0-32.0); MCHC 33.6 g/dL (32.0-37.0); MCV 84.9 FL (80.0-97.0); Mean Platelet Volume 10.9 FL (9.5-12.2); Monocytes # (A) 0.47 X 10*3/uL (0.20-1.00); Monocytes % (A) 4.5 %; NRBC Per 100 WBC 0 X 10*3/uL (0.00-0.01); Neutrophils # (A) 8.77 X 10*3/uL (1.80-7.70); Neutrophils % (A) 83.9 %; Platelet Count 241 X 10*3/uL (140-440); RBC 4.91 X 10*6/uL (4.40-5.60); WBC 10.45 X 10*3/uL (4.50-10.00)
[2024-04-27 08:54] LABS: ALT 12 U/L (10-49); AST 11 U/L (14-35); Albumin 3.8 g/dL (3.8-4.9); Albumin/Globulin Ratio 1.46 Ratio (1.60-3.17); Alkaline Phosphatase 90 U/L (41-126); BUN/Creat Ratio 17.38 Ratio (12.00-20.00); Blood Urea Nitrogen 13.9 mg/dL (9.0-27.0); Calcium 8.5 mg/dL (8.7-10.3); Carbon Dioxide 20.3 mmol/L (21.6-31.8); Chloride 101 mmol/L (96-109); Globulin 2.6 g/dL (1.6-3.3); Glucose 298 mg/dL (70-110); Magnesium 1.7 mg/dL (1.5-2.4); Potassium 4.1 mmol/L (3.5-5.5); Sodium 135 mmol/L (135-145); Total Protein 6.4 g/dL (6.2-8.2)
[2024-04-27] MEDS: VANCOMYCIN TROUGH DUE 1 EACH MISC MISCELLANE ONE (10:06)
--- NOTE | 2024-04-27 12:03 | P.PN ---
Subjective Progress Note Date: 04/27/24 CHIEF COMPLAINT: Abdominal wall cellulitis HISTORY OF PRESENT ILLNESS: The patient is a 48 year old male who presents after 1 week history of right lower abdominal swelling with redness. Patient admitted for abscess with cellulitis of the abdominal wall. He reports decreased firmness of his ulcer of the right lower abdomen. He feels better today.. REVIEW OF ORGAN SYSTEMS: CONSTITUTIONAL: No fevers or chills. Body mass index 36.8, morbid obesity. CARDIOVASCULAR: Denies any chest pain, palpitations, or recent heart attacks. Hypertensive heart disease. GASTROINTESTINAL: Denies fatty food intolerance. Denies change in bowel habits and gas bloat. ENDOCRINE: Denies current thyroid disorders. Has diabetes type 2. PHYSICAL EXAM: VITALS: Reviewed CONSTITUTIONAL: Well developed and in no acute distress. EYES: Conjuctivae without sclera icterus. Extraocular movements grossly intact. HEAD, EARS, NOSE, THROAT: Moist buccal mucosa. Head is atraumatic, normocephalic. Hears conversational speech. No nasal drainage. RESPIRATORY: Non-labored respirations and equal bilateral excursions. No gross wheezes. CARDIOVASCULAR: Palpable 2+ radial pulses. ABDOMEN: Cellulitis resolving from the borders. MUSCULOSKELETAL: No clubbing cyanosis or edema SKIN: Warm and well perfused with good skin turgor. NEUROLOGIC: Cranial nerves II through XII grossly intact. No focal or lateralizing signs. PSYCH: Appropriate affect. Alert and oriented to person, place and time. Displays appropriate insight. CLINCAL LABS: Reviewed. WBC elevated 12,000 to over 17,000 today. Today trending downward to over 10,000 ASSESSMENT: 1. Abdominal wall cellulitis, right lower quadrant 2. Sepsis due to abdominal wall cellulitis 3. Diabetes type 2 with hyperglycemia 4. Morbid obesity due to excess calories, BMI 36.8 5. Hypertensive heart disease. PLAN: 1. Surgical options reviewed including incision and drainage with debridement. Patient opted for surgical intervention to accelerate recovery. Objective - Vital Signs Vital signs: Vital Signs Temp 98.4 F 04/27/24 07:00 Pulse 76 04/27/24 07:00 Resp 17 04/27/24 07:00 BP 99/64 04/27/24 07:00 Pulse Ox 95 04/27/24 07:00 FiO2 Intake & Output 04/26/24 04/27/24 04/27/24 18:59 06:59 18:59 Intake Total 120 472 Balance 120 472 Intake: Oral 120 472 Other: Voiding Method Toilet # Voids 2 - Labs CBC & Chem 7: 04/27/24 05:59 04/27/24 05:59 Labs: Abnormal Lab Results - Last 24 Hours (Table) 04/26/24 04/26/24 04/26/24 Range/Units 11:45 11:45 11:45 WBC 17.4 H (3.8-10.6) k/uL Neutrophils # (1.80-7.70) X 10*3/uL Lymphocytes # (0.90-5.00) X 10*3/uL Carbon Dioxide (21.6-31.8) mmol/L Anion Gap (4.00-12.00) mmol/L Creatinine 0.62 L (0.66-1.25) mg/dL Glucose 243 H (74-99) mg/dL POC Glucose (mg/dL) (70-110) mg/dL Hemoglobin A1c 11.5 H (<=6.0) % Calcium (8.7-10.3) mg/dL Magnesium 1.3 L (1.6-2.3) mg/dL AST (14-35) U/L C-Reactive Protein 2.6 H (<1.0) mg/dL Albumin/Globulin Ratio (1.60-3.17) Ratio 04/26/24 04/26/24 04/26/24 Range/Units 12:17 17:42 20:08 WBC (3.8-10.6) k/uL Neutrophils # (1.80-7.70) X 10*3/uL Lymphocytes # (0.90-5.00) X 10*3/uL Carbon Dioxide (21.6-31.8) mmol/L Anion Gap (4.00-12.00) mmol/L Creatinine (0.66-1.25) mg/dL Glucose (74-99) mg/dL POC Glucose (mg/dL) 276 H 274 H 379 H (70-110) mg/dL Hemoglobin A1c (<=6.0) % Calcium (8.7-10.3) mg/dL Magnesium (1.6-2.3) mg/dL AST (14-35) U/L C-Reactive Protein (<1.0) mg/dL Albumin/Globulin Ratio (1.60-3.17) Ratio 04/27/24 04/27/24 04/27/24 Range/Units 05:45 05:59 05:59 WBC 10.45 H (3.8-10.6) k/uL Neutrophils # 8.77 H (1.80-7.70) X 10*3/uL Lymphocytes # 0.87 L (0.90-5.00) X 10*3/uL Carbon Dioxide 20.3 L (21.6-31.8) mmol/L Anion Gap 13.70 H (4.00-12.00) mmol/L Creatinine (0.66-1.25) mg/dL Glucose 298 H (74-99) mg/dL POC Glucose (mg/dL) 269 H (70-110) mg/dL Hemoglobin A1c (<=6.0) % Calcium 8.5 L (8.7-10.3) mg/dL Magnesium (1.6-2.3) mg/dL AST 11 L (14-35) U/L C-Reactive Protein (<1.0) mg/dL Albumin/Globulin Ratio 1.46 L (1.60-3.17) Ratio 04/27/24 Range/Units 07:33 WBC (3.8-10.6) k/uL Neutrophils # (1.80-7.70) X 10*3/uL Lymphocytes # (0.90-5.00) X 10*3/uL Carbon Dioxide (21.6-31.8) mmol/L Anion Gap (4.00-12.00) mmol/L Creatinine (0.66-1.25) mg/dL Glucose (74-99) mg/dL POC Glucose (mg/dL) 245 H (70-110) mg/dL Hemoglobin A1c (<=6.0) % Calcium (8.7-10.3) mg/dL Magnesium (1.6-2.3) mg/dL AST (14-35) U/L C-Reactive Protein (<1.0) mg/dL Albumin/Globulin Ratio (1.60-3.17) Ratio Microbiology - Last 24 Hours (Table) 04/25/24 21:00 Gram Stain - Preliminary Abdomen Wound Culture - Preliminary Presumptive Staph aureus 04/25/24 20:45 Blood Culture - Preliminary Blood 04/25/24 21:00 Blood Culture - Preliminary Blood
[2024-04-27 12:04] LABS: Glucose,Whole Blood 314 mg/dL (70-110)
--- NOTE | 2024-04-27 13:15 | P.PN ---
Subjective Progress Note Date: 04/27/24 Principal diagnosis: Reason for follow-up abdominal wall abscess and cellulitis Patient is a 48-year-old male with a past medical history significant for diabetes mellitus hypertension asthma depression, patient presenting to the hospital for evaluation of right lower abdominal wall pain swelling and redness has been diagnosed with abscess and cellulitis. On today's evaluation that is 04/27/2024, the patient continues to be afebrile, the patient is on room air and breathing comfortably, the Pt denies having any chest pain or cough, the patient right lower abdominal wall pain and redness has decreased and no nausea no vomiting and no diarrhea. Patient white count is down to 10.45, creatinine 0.8 Vanco trough is 24.1 culture with preservative Staph aureus Objective - Vital Signs Vital signs: Vital Signs Temp 98.4 F 04/27/24 07:00 Pulse 76 04/27/24 07:00 Resp 17 04/27/24 07:00 BP 99/64 04/27/24 07:00 Pulse Ox 95 04/27/24 07:00 FiO2 Intake & Output 04/26/24 04/27/24 04/27/24 18:59 06:59 18:59 Intake Total 120 472 Balance 120 472 Intake: Oral 120 472 Other: Voiding Method Toilet # Voids 2 - Exam GENERAL DESCRIPTION: Middle-age male up in the chair in no distress RESPIRATORY SYSTEM: Unlabored breathing , decreased breath sounds at bases HEART: S1 S2 regular rate and rhythm , ABDOMEN: Soft , right lower quadrant swelling redness slightly decreased minimal drainage on the dressing EXTREMITIES: No edema feet - Labs CBC & Chem 7: 04/27/24 05:59 04/27/24 05:59 Labs: Abnormal Lab Results - Last 24 Hours (Table) 04/26/24 04/26/24 04/26/24 Range/Units 11:45 11:45 17:42 WBC (4.50-10.00) X 10*3/uL Neutrophils # (1.80-7.70) X 10*3/uL Lymphocytes # (0.90-5.00) X 10*3/uL Carbon Dioxide (21.6-31.8) mmol/L Anion Gap (4.00-12.00) mmol/L Glucose (70-110) mg/dL POC Glucose (mg/dL) 274 H (70-110) mg/dL Hemoglobin A1c 11.5 H (<=6.0) % Calcium (8.7-10.3) mg/dL AST (14-35) U/L C-Reactive Protein 2.6 H (<1.0) mg/dL Albumin/Globulin Ratio (1.60-3.17) Ratio 04/26/24 04/27/24 04/27/24 Range/Units 20:08 05:45 05:59 WBC 10.45 H (4.50-10.00) X 10*3/uL Neutrophils # 8.77 H (1.80-7.70) X 10*3/uL Lymphocytes # 0.87 L (0.90-5.00) X 10*3/uL Carbon Dioxide (21.6-31.8) mmol/L Anion Gap (4.00-12.00) mmol/L Glucose (70-110) mg/dL POC Glucose (mg/dL) 379 H 269 H (70-110) mg/dL Hemoglobin A1c (<=6.0) % Calcium (8.7-10.3) mg/dL AST (14-35) U/L C-Reactive Protein (<1.0) mg/dL Albumin/Globulin Ratio (1.60-3.17) Ratio 04/27/24 04/27/24 04/27/24 Range/Units 05:59 07:33 12:03 WBC (4.50-10.00) X 10*3/uL Neutrophils # (1.80-7.70) X 10*3/uL Lymphocytes # (0.90-5.00) X 10*3/uL Carbon Dioxide 20.3 L (21.6-31.8) mmol/L Anion Gap 13.70 H (4.00-12.00) mmol/L Glucose 298 H (70-110) mg/dL POC Glucose (mg/dL) 245 H 314 H (70-110) mg/dL Hemoglobin A1c (<=6.0) % Calcium 8.5 L (8.7-10.3) mg/dL AST 11 L (14-35) U/L C-Reactive Protein (<1.0) mg/dL Albumin/Globulin Ratio 1.46 L (1.60-3.17) Ratio Microbiology - Last 24 Hours (Table) 04/25/24 21:00 Gram Stain - Preliminary Abdomen Wound Culture - Preliminary Presumptive Staph aureus 04/25/24 20:45 Blood Culture - Preliminary Blood 04/25/24 21:00 Blood Culture - Preliminary Blood Assessment and Plan (1) Abdominal wall abscess Current Visit: Yes Status: Acute Code(s): L02.211 - CUTANEOUS ABSCESS OF ABDOMINAL WALL SNOMED Code(s): 76198585 (2) Abdominal wall cellulitis Current Visit: Yes Status: Acute Code(s): L03.311 - CELLULITIS OF ABDOMINAL WALL SNOMED Code(s): 12180762 (3) Leukocytosis Current Visit: Yes Status: Acute Code(s): D72.829 - ELEVATED WHITE BLOOD CELL COUNT, UNSPECIFIED SNOMED Code(s): 911279917 Plan: 1patient presented to hospital with right lower quadrant abdominal wall pain swelling and redness with the area of induration and some in fluid collection on the ultrasound concerning for abscess and cellulitis likely from gram-positive skin norma 2-local culture currently growing Staph aureus with sensitivities pending 3-patient is waiting for surgical debridement and drainage this afternoon 4-patient to continue with the vancomycin dose need to be adjusted down to keep the trough around 15 while watching his kidney function and culture closely Dictation was produced using [employer] dictation software. please excuse any grammatical, word or spelling errors. Time with Patient: Less than 30
--- NOTE | 2024-04-27 14:17 | P.PN ---
Subjective Progress Note Date: 04/27/24 Hospital course: Patient is a 48-year-old male with a past medical history of hypertension, atrial tachycardia, GERD, type II oac-[id number]-[id number] diabetes mellitus, and depression. He presented to the hospital on 04/25/2024 secondary to skin abscess and concerns of surrounding infection. Upon arrival to our facility, patient underwent evaluation in the emergency department. Vital signs upon arrival show blood pressure 131/86, heart rate 108, respiratory rate 22, temp 98.0 F, and SpO2 of 97% on room air. Labs completed and reviewed. CBC showing leukocytosis with WBC count of 12.2. BMP showing hyponatremia with sodium 134 and hypocarbia with bicarb of 20 with mild prerenal azotemia with BUN of 21. Blood glucose was elevated at 348. Liver profile unremarkable. Urinalysis positive for ketones and glucose negative for infection. Patient was admitted under services with consultation to general surgery and infectious disease. Abdominal ultrasound was completed showing subcutaneous edema with early abscess formation underwent definitive focal fluid collection reported. Patient is scheduled to undergo I&D later this afternoon. Physical exam: Patient seen and fully evaluated at the bedside this morning. He does have improvement in surrounding erythema seems to be residing from marked area. He reports pain is controlled and currently denies having any other complaints at this time. Patient awaiting to be taken down for I&D later today. Vital signs reviewed and stable. General: Nontoxic, no distress and appears stated age. Derm: Skin warm and dry, normal coloration for ethnicity. Right lower quadrant ulcer 3 cm ulcer with large surrounding area of erythema around 14 inches with some palpable fluctuance under the ulcer noted, warm. No discharge/drainage at this time. Surrounding erythema outlined with skin marker. Head: Atraumatic, normocephalic and symmetric. Eyes: EOMs intact, no lid lag, and anicteric sclera Mouth: no lip lesions, mucus membranes moist Cardiovascular: regular rate and rhythm with normal S1S2, no murmur, positive posterior tibial pulses bilaterally, and cap refill < 2 seconds. Lungs: Respirations even, regular, and unlabored on room air. Lungs CTA bilaterally, no rhonchi, no rales, no wheezing, and no accessory muscle usage. Abdominal: soft, nontender to palpation, no guarding, no appreciable organomegaly Ext: ROM intact. No gross muscle atrophy, no edema, no contractures Neuro: Speech clear, face symmetrical and CN II-XII grossly intact with no noted focal neuro deficits Psych: Alert and oriented to person, place, time, and situation. Appropriate and pleasant affect. Assessment and Plan of Care: Abdominal abscess with surrounding abdominal wall cellulitis Poorly controlled diabetes mellitus with hyperglycemia, hemoglobin A1c 11.5% Leukocytosis -Abdominal ultrasound was completed showing subcutaneous edema with early abscess formation underwent definitive focal fluid collection reported. -Continue IV antibiotics with vancomycin 1750 mg every 12 hours. Will monitor renal function closely to monitor for any signs/symptoms of vancomycin associat ed renal toxicity. Vancomycin trough was 24.1 and vancomycin dose was decreased to 1750 mg every 12 hours. -Infectious disease consulted, reviewed documentation in chart. -General surgery following and taking patient down for I&D later today. -Symptomatic care and pain management with Tylenol 650 mg every 6 hours as needed for mild pain/fever, [place] 5/325 mg every 4 hours as needed for moderate pain, and Dilaudid 0.5 mg IVP every 3 hours as needed for severe pain. -Patient placed on glycemic protocol with NovoLog sliding scale. -Hemoglobin A1c 11.5% -Gentle IV fluid hydration. -CRP elevated at 2.6. -Follow-up on blood cultures and wound cultures. Hypomagnesemia Magnesium 1.7. Orders placed for magnesium sulfate 2 g IVPB. Will continue to monitor for improvement/resolution with repeat magnesium levels with a.m. labs. Will place additional orders as indicated based upon these findings. History of atrial tachycardia -Continue daily medication regimen with metoprolol succinate 50 mg daily. Hypertension -Continue daily medication regimen with lisinopril 20 mg daily and metoprolol 50 mg daily. GERD -Continue daily medication regimen with Protonix 40 mg daily. Depression -Continue daily medication regimen with Zoloft 100 mg daily. Data and imaging reviewed: -Vital signs reviewed. Blood pressure on the lower side this morning resulting at 99/64, heart rate 76, respiratory rate 17, temp 98.4 F, and SpO2 of 95% on room air -Morning labs completed and reviewed. CBC showing leukocytosis with WBC count of 10.45. BMP showing hypocarbia with bicarb of 20.3 and elevated anion gap of 13.70. Blood glucose 269. Magnesium slightly low at 1.7. Liver profile unremarkable. Vancomycin trough supratherapeutic at 24.1. Hemoglobin A1c is elevated at 11.5%. CODE STATUS: Full code DVT prophylaxis: Lovenox Anticipated discharge date: Pending clinical course Anticipated discharge place: Home Patient was seen independently by Nurse Pracitioner. This document was prepared using [employer] dictation software. Please allow for errors in team lead, while rare they do occur. Danny Foote CASTING AND PASTING SUPERVISOR rendered care for this patient independently, reviewed the findings and plan as documented in the note above. I did not physically speak with or examine the patient on this date. Objective - Vital Signs Vital signs: Vital Signs Temp 98.4 F 04/27/24 07:00 Pulse 76 04/27/24 07:00 Resp 17 04/27/24 07:00 BP 99/64 04/27/24 07:00 Pulse Ox 95 04/27/24 07:00 FiO2 Intake & Output 04/26/24 04/27/24 04/27/24 18:59 06:59 18:59 Intake Total 120 Balance 120 Intake: Oral 120 Other: Voiding Method Toilet # Voids 2 - Labs CBC & Chem 7: 04/27/24 05:59 04/27/24 05:59 Labs: Abnormal Lab Results - Last 24 Hours (Table) 04/26/24 04/26/24 04/26/24 Range/Units 11:45 11:45 11:45 WBC 17.4 H (3.8-10.6) k/uL Neutrophils # (1.80-7.70) X 10*3/uL Lymphocytes # (0.90-5.00) X 10*3/uL Carbon Dioxide (21.6-31.8) mmol/L Anion Gap (4.00-12.00) mmol/L Creatinine 0.62 L (0.66-1.25) mg/dL Glucose 243 H (74-99) mg/dL POC Glucose (mg/dL) (70-110) mg/dL Hemoglobin A1c 11.5 H (<=6.0) % Calcium (8.7-10.3) mg/dL Magnesium 1.3 L (1.6-2.3) mg/dL AST (14-35) U/L C-Reactive Protein 2.6 H (<1.0) mg/dL Albumin/Globulin Ratio (1.60-3.17) Ratio 04/26/24 04/26/24 04/26/24 Range/Units 12:17 17:42 20:08 WBC (3.8-10.6) k/uL Neutrophils # (1.80-7.70) X 10*3/uL Lymphocytes # (0.90-5.00) X 10*3/uL Carbon Dioxide (21.6-31.8) mmol/L Anion Gap (4.00-12.00) mmol/L Creatinine (0.66-1.25) mg/dL Glucose (74-99) mg/dL POC Glucose (mg/dL) 276 H 274 H 379 H (70-110) mg/dL Hemoglobin A1c (<=6.0) % Calcium (8.7-10.3) mg/dL Magnesium (1.6-2.3) mg/dL AST (14-35) U/L C-Reactive Protein (<1.0) mg/dL Albumin/Globulin Ratio (1.60-3.17) Ratio 04/27/24 04/27/24 04/27/24 Range/Units 05:45 05:59 05:59 WBC 10.45 H (3.8-10.6) k/uL Neutrophils # 8.77 H (1.80-7.70) X 10*3/uL Lymphocytes # 0.87 L (0.90-5.00) X 10*3/uL Carbon Dioxide 20.3 L (21.6-31.8) mmol/L Anion Gap 13.70 H (4.00-12.00) mmol/L Creatinine (0.66-1.25) mg/dL Glucose 298 H (74-99) mg/dL POC Glucose (mg/dL) 269 H (70-110) mg/dL Hemoglobin A1c (<=6.0) % Calcium 8.5 L (8.7-10.3) mg/dL Magnesium (1.6-2.3) mg/dL AST 11 L (14-35) U/L C-Reactive Protein (<1.0) mg/dL Albumin/Globulin Ratio 1.46 L (1.60-3.17) Ratio 04/27/24 Range/Units 07:33 WBC (3.8-10.6) k/uL Neutrophils # (1.80-7.70) X 10*3/uL Lymphocytes # (0.90-5.00) X 10*3/uL Carbon Dioxide (21.6-31.8) mmol/L Anion Gap (4.00-12.00) mmol/L Creatinine (0.66-1.25) mg/dL Glucose (74-99) mg/dL POC Glucose (mg/dL) 245 H (70-110) mg/dL Hemoglobin A1c (<=6.0) % Calcium (8.7-10.3) mg/dL Magnesium (1.6-2.3) mg/dL AST (14-35) U/L C-Reactive Protein (<1.0) mg/dL Albumin/Globulin Ratio (1.60-3.17) Ratio Microbiology - Last 24 Hours (Table) 04/25/24 20:45 Blood Culture - Preliminary Blood 04/25/24 21:00 Blood Culture - Preliminary Blood 04/25/24 21:00 Gram Stain - Preliminary Abdomen
[2024-04-27] MEDS: MAGNESIUM SULFATE-D5W PMX 1 GM in DEXTROSE/WATER 1 100ML.BAG IVPB SCH (15:50)
[2024-04-27 17:05] LABS: Glucose,Whole Blood 249 mg/dL (70-110)
[2024-04-27] MEDS: VANCOMYCIN 1,750 MG in SODIUM CHLORIDE 0.9% 500 ML 500 ML IVPB SCH (18:08)
[2024-04-27] MEDS: IV FLUID CONTINUATION 1,000 ML IV ONE ×2 (19:19→20:36)
[2024-04-27 19:21] LABS: Glucose,Whole Blood 246 mg/dL (70-110)
[2024-04-27] MEDS ORDERED: PROPOFOL 10 MG/ML 20 ML VIAL IV ONE (19:49)
[2024-04-27] MEDS ORDERED: LIDOCAINE 1% INJ 10MG/ML (20 ML MDV) ONE (19:49)
[2024-04-27] MEDS ORDERED: fentaNYL (PF) 50 MCG/ML 2 ML AMP ONE (19:49)
[2024-04-27] MEDS ORDERED: SUCCINYLCHOLINE CHLORIDE 200 MG/10 ML VIAL IV ONE (19:49)
[2024-04-27] MEDS ORDERED: MIDAZOLAM 2 MG/2 ML VIAL ONE (19:49)
[2024-04-27] MEDS: LIDOCAINE 1%-EPI 1:100,000 20 ML VIAL SQ ONE (20:15)
[2024-04-27] MEDS: ALBUTEROL NEBULIZED 2.5 MG/3 ML INHALATION STA (20:52)
[2024-04-27 20:57] LABS: Glucose,Whole Blood 239 mg/dL (70-110)
[2024-04-27 21:45] LABS: Glucose,Whole Blood 241 mg/dL (70-110)
[2024-04-27] MEDS ORDERED: NALOXONE 0.4 MG/ML 1 ML VIAL IV PRN (23:39)
[2024-04-27] MEDS ORDERED: HYDROmorphone 1 MG/ML 1 ML SYRINGE IVP PRN (23:40)
[2024-04-28 06:21] LABS: African American GFR (CKD) >90 (>60 ml/min/1.73 sqM); Non-African American GFR(CKD) >90 (>60 ml/min/1.73 sqM)
[2024-04-28 06:26] LABS: Glucose,Whole Blood 220 mg/dL (70-110)
--- NOTE | 2024-04-28 08:08 | P.OP ---
Date of Procedure: 04/27/24 Description of Procedure: SURGEON: MANNY HYLTON MD PREOPERATIVE DIAGNOSES: 1. Right lower quadrant abdominal cellulitis with abscess, 20 x 15 cm 2. Morbid obesity due to excess calories, BMI 36.8 3. Diabetes type 2 insulin-dependent with hyperglycemia 4. Hypertensive heart disease 5. Sepsis due to abdominal wall cellulitis POSTOPERATIVE DIAGNOSES: 1. Right lower quadrant abdominal cellulitis with abscess, 20 x 15 cm 2. Morbid obesity due to excess calories, BMI 36.8 3. Diabetes type 2 insulin-dependent with hyperglycemia 4. Hypertensive heart disease 5. Sepsis due to abdominal wall cellulitis OPERATION: 1. Excision of right lower quadrant abdominal wall deep subcutaneous tumor 6 x 3 cm. 2. Incision and drainage of abdominal wall abscess 3. Water jet lavage 1 L normal saline 6 x 3 cm, abdominal wall 4. Placement of quarter inch [place] drain abdominal wall ANESTHESIA: GETA and local ESTIMATED BLOOD LOSS: 20 mL. SPECIMENS REMOVED: 1. Aerobic and anaerobic cultures of abdominal wall 2. Abdominal wall mass, right lower quadrant COMPLICATIONS: None. FINDINGS: 1. Abdominal wall mass involving the deep subcutaneous tissue aerobic and anaerobic cultures obtained. 2. Purulent material 5 cc drained INDICATIONS: The patient is a 48-year-old male who presents with right lower quadrant pain including increased abdominal wall tenderness and swelling. Surgical options, including excision was discussed. Benefits and risks were described. Informed consent was obtained. DESCRIPTION OF PROCEDURE: Patient was brought into the operating room, laid in supine position. After general induction, the abdomen was prepped and draped in standard sterile fashion using Betadine. A timeout protocol was confirmed with the surgical team regarding patient's name including procedures to be performed. Schedule antibiotics of vancomycin IV was being infused at the time of his procedure. Skin ulceration of 2 cm identified along the right lower quadrant. Palpable mass was found consistent with soft tissue induration and abscess. An elliptical transverse incision 6 x 3 cm using #15 blade to incorporate the skin ulceration. Deep tissue aerobic anaerobic cultures were obtained. The wound was copiously irrigated using water jet lavage 1 L normal saline for neftali ridement. Hemostasis was checked with electro-Bovie cautery. The specimen was passed off. Quarter inch [place] drains was placed along the bed of the wound. The incision was closed using 2-0 nylon interrupted fashion with Porsche drain exiting along the lateral aspect of the wound. Skin was cleansed using hydrogen peroxide. 4 x 4 gauze and 6 inch Medipore tape was placed. At the end of the procedure, needle, sponge, and instrument count had been verified correct by the surgical supplies sterilizer. The patient was taken to the postanesthesia care unit in stable condition.
[2024-04-28] MEDS: IBUPROFEN 600 MG TAB PO PRN (08:59)
[2024-04-28] MEDS: guaiFENesin 600 MG TABLET.ER PO SCH (08:59)
[2024-04-28] MEDS: INSULIN DETEMIR (LEVEMIR) 100 UNIT/ML SYR SQ SCH (10:44)
[2024-04-28 11:37] VITALS: BMI 36.8
[2024-04-28 12:09] LABS: Glucose,Whole Blood 241 mg/dL (70-110)
--- NOTE | 2024-04-28 13:17 | P.PN ---
Subjective Progress Note Date: 04/28/24 Principal diagnosis: Reason for follow-up abdominal wall abscess and cellulitis Patient is a 48-year-old male with a past medical history significant for diabetes mellitus hypertension asthma depression, patient presenting to the hospital for evaluation of right lower abdominal wall pain swelling and redness has been diagnosed with abscess and cellulitis. Patient did have excision of the right lower quadrant abdominal wall deep subcutaneous tumor and drainage of the abscess procedure completed on 04/27/2024. On today's evaluation that is 04/28/2024, Patient is afebrile patient is currently on room air and denies having any shortness of breath, the patient denies any chest pain or cough, the patient denies any nausea vomiting discomfort in the right lower quadrant has decreased redness has decreased and no drainage Patient did have a creatinine 0.57 culture currently growing Staph aureus with sensitivities pending Objective - Vital Signs Vital signs: Vital Signs Temp 98.6 F 04/28/24 07:00 Pulse 76 04/28/24 07:00 Resp 18 04/28/24 01:37 BP 109/70 04/28/24 07:00 Pulse Ox 100 04/28/24 07:00 FiO2 Intake & Output 04/27/24 04/28/24 04/28/24 18:59 06:59 18:59 Intake Total 472 900 Output Total 5 Balance 472 895 Weight 123.15 kg Intake: IV 800 Oral 472 100 Output: Estimated Blood Loss 5 Other: Voiding Method Toilet # Voids 1 2 - Exam GENERAL DESCRIPTION: Middle-age male up in the chair in no distress RESPIRATORY SYSTEM: Unlabored breathing , decreased breath sounds at bases HEART: S1 S2 regular rate and rhythm , ABDOMEN: Soft , right lower quadrant swelling redness slightly decreased minimal drainage on the dressing EXTREMITIES: No edema feet - Labs CBC & Chem 7: 04/27/24 05:59 04/28/24 05:36 Labs: Abnormal Lab Results - Last 24 Hours (Table) 04/27/24 04/27/24 04/27/24 Range/Units 12:03 17:04 19:19 Creatinine (0.66-1.25) mg/dL POC Glucose (mg/dL) 314 H 249 H 246 H (70-110) mg/dL 04/27/24 04/27/24 04/28/24 Range/Units 20:56 21:43 05:36 Creatinine 0.57 L (0.66-1.25) mg/dL POC Glucose (mg/dL) 239 H 241 H (70-110) mg/dL 04/28/24 Range/Units 06:25 Creatinine (0.66-1.25) mg/dL POC Glucose (mg/dL) 220 H (70-110) mg/dL Microbiology - Last 24 Hours (Table) 04/27/24 20:13 Gram Stain - Preliminary Abdomen 04/25/24 20:45 Blood Culture - Preliminary Blood 04/25/24 21:00 Blood Culture - Preliminary Blood 04/25/24 21:00 Gram Stain - Preliminary Abdomen Wound Culture - Preliminary Presumptive Staph aureus Assessment and Plan (1) Abdominal wall abscess Current Visit: Yes Status: Acute Code(s): L02.211 - CUTANEOUS ABSCESS OF ABDOMINAL WALL SNOMED Code(s): 88390533 (2) Abdominal wall cellulitis Current Visit: Yes Status: Acute Code(s): L03.311 - CELLULITIS OF ABDOMINAL WALL SNOMED Code(s): 64428126 (3) Leukocytosis Current Visit: Yes Status: Acute Code(s): D72.829 - ELEVATED WHITE BLOOD CELL COUNT, UNSPECIFIED SNOMED Code(s): 582933703 Plan: 1patient presented to hospital with right lower quadrant abdominal wall pain swelling and redness with the area of induration and some in fluid collection on the ultrasound concerning for abscess and cellulitis likely from gram-positive skin norma 2-local culture currently growing Staph aureus with sensitivities pending 3-patient is s/p surgical debridement and drainage with cultures currently pending 4-patient to continue with the vancomycin adjust antibiotic further based on the culture and clinical response Dictation was produced using [employer] dictation software. please excuse any gram matical, word or spelling errors. Time with Patient: Less than 30
--- NOTE | 2024-04-28 15:56 | P.PN ---
Subjective Progress Note Date: 04/28/24 Hospital course: Patient is a 48-year-old male with a past medical history of hypertension, atrial tachycardia, GERD, type II wkb-hbsoyvd-eylizokmg diabetes mellitus, and depression. He presented to the hospital on 04/25/2024 secondary to skin abscess and concerns of surrounding infection. Upon arrival to our facility, patient underwent evaluation in the emergency department. Vital signs upon arrival show blood pressure 131/86, heart rate 108, respiratory rate 22, temp 98.0 F, and SpO2 of 97% on room air. Labs completed and reviewed. CBC showing leukocytosis with WBC count of 12.2. BMP showing hyponatremia with sodium 134 and hypocarbia with bicarb of 20 with mild prerenal azotemia with BUN of 21. Blood glucose was elevated at 348. Liver profile unremarkable. Urinalysis positive for ketones and glucose negative for infection. Patient was admitted under services with consultation to general surgery and infectious disease. Abdominal ultrasound was completed showing subcutaneous edema with early abscess formation underwent definitive focal fluid collection reported. Patient underwent I&D of abdominal wall mass on 04/27/2024. Cultures sent to lab for analysis. Physical exam: Patient seen and fully evaluated at the bedside this morning. Postop day 1 status post abdominal I&D. Dressing in place. Patient ambulating in halls and reports pain is controlled with Motrin. Vital signs reviewed and stable. General: Nontoxic, no distress and appears stated age. Derm: Skin warm and dry, normal coloration for ethnicity. Head: Atraumatic, normocephalic and symmetric. Eyes: EOMs intact, no lid lag, and anicteric sclera Mouth: no lip lesions, mucus membranes moist Cardiovascular: regular rate and rhythm with normal S1S2, no murmur, positive posterior tibial pulses bilaterally, and cap refill < 2 seconds. Lungs: Respirations even, regular, and unlabored on room air. Lungs CTA bilaterally, no rhonchi, no rales, no wheezing, and no accessory muscle usage. Abdominal: soft, nontender to palpation, no guarding, no appreciable organomegaly. Dressing intact to abdominal wall cellulitis with mass/abscess. Ext: ROM intact. No gross muscle atrophy, no edema, no contractures Neuro: Speech clear, face symmetrical and CN II-XII grossly intact with no noted focal neuro deficits Psych: Alert and oriented to person, place, time, and situation. Appropriate and pleasant affect. Assessment and Plan of Care: Abdominal abscess with surrounding abdominal wall cellulitis Poorly controlled diabetes mellitus with hyperglycemia, hemoglobin A1c 11.5% Leukocytosis -Abdominal ultrasound was completed showing subcutaneous edema with early abscess formation underwent definitive focal fluid collection reported. -Continue IV antibiotics with vancomycin 1750 mg every 12 hours. Will monitor renal function closely to monitor for any signs/symptoms of vancomycin associated renal toxicity. -Infectious disease consulted, reviewed documentation in chart. -General surgery following and took patient for I&D on 04/27/2024. -Patient underwent I&D of abdominal wall mass on 04/27/2024. Cultures sent to lab for analysis. -Symptomatic care and pain management with Tylenol 650 mg every 6 hours as needed for mild pain/fever, [place] 5/325 mg every 4 hours as needed for moderate pain, and Dilaudid 0.5 mg IVP every 3 hours as needed for severe pain. -Patient placed on glycemic protocol with NovoLog sliding scale and glucose levels remain elevated, patient started on Levemir 15 units daily.. -Hemoglobin A1c 11.5% -Gentle IV fluid hydration. -CRP elevated at 2.6. -Blood culture showing no growth to date, will follow-up on wound cultures. Hypomagnesemia Magnesium 1.7. Orders placed for magnesium sulfate 2 g IVPB. Will continue to monitor for improvement/resolution with repeat magnesium levels with a.m. labs. Will place additional orders as indicated based upon these findings. History of atrial tachycardia -Continue daily medication regimen with metoprolol succinate 50 mg daily. Hypertension -Continue daily medication regimen with lisinopril 20 mg daily and metoprolol 50 mg daily. GERD -Continue daily medication regimen with Protonix 40 mg daily. Depression -Continue daily medication regimen with Zoloft 100 mg daily. Data and imaging reviewed: -Vital signs reviewed. Blood pressure 109/70, heart rate 76, respiratory rate 18, temp 98.6 F, and SpO2 100% on room air. -Morning labs completed and reviewed. Blood glucose remains elevated 220 this morning. Patient started on Levemir 15 units daily. CODE STATUS: Full code DVT prophylaxis: Lovenox Anticipated discharge date: Pending clinical course Anticipated discharge place: Home Patient was seen independently by Nurse Pracitioner. This document was prepared using [email or web address] dictation software. Please allow for errors in wedding florist, while rare they do occur. I reviewed the documentation as provided by the CASEY above, who is the original author of this note. I agree with the documented assessment and plan, with the following changes: none Objective - Vital Signs Vital signs: Vital Signs Temp 98.6 F 04/28/24 07:00 Pulse 76 04/28/24 07:00 Resp 18 04/28/24 01:37 BP 109/70 04/28/24 07:00 Pulse Ox 100 04/28/24 07:00 FiO2 Intake & Output 04/27/24 04/28/24 04/28/24 18:59 06:59 18:59 Intake Total 472 900 Output Total 5 Balance 472 895 Weight 123.15 kg Intake: IV 800 Oral 472 100 Output: Estimated Blood Loss 5 Other: Voiding Method Toilet # Voids 1 2 - Labs CBC & Chem 7: 04/29/24 05:57 04/29/24 05:57 Labs: Abnormal Lab Results - Last 24 Hours (Table) 04/27/24 04/27/24 04/27/24 Range/Units 12:03 17:04 19:19 Creatinine (0.66-1.25) mg/dL POC Glucose (mg/dL) 314 H 249 H 246 H (70-110) mg/dL 04/27/24 04/27/24 04/28/24 Range/Units 20:56 21:43 05:36 Creatinine 0.57 L (0.66-1.25) mg/dL POC Glucose (mg/dL) 239 H 241 H (70-110) mg/dL 04/28/24 Range/Units 06:25 Creatinine (0.66-1.25) mg/dL POC Glucose (mg/dL) 220 H (70-110) mg/dL Microbiology - Last 24 Hours (Table) 04/25/24 20:45 Blood Culture - Preliminary Blood 04/25/24 21:00 Blood Culture - Preliminary Blood 04/25/24 21:00 Gram Stain - Preliminary Abdomen Wound Culture - Preliminary Presumptive Staph aureus
[2024-04-28 16:59] LABS: Glucose,Whole Blood 218 mg/dL (70-110)
--- NOTE | 2024-04-28 17:49 | P.PN ---
Progress Note - Text Progress Note Date: 04/28/24 CHIEF COMPLAINT: Abdominal wall cellulitis HISTORY OF PRESENT ILLNESS: No acute events overnight REVIEW OF ORGAN SYSTEMS: CONSTITUTIONAL: No fevers or chills. Body mass index 36.8, morbid obesity. CARDIOVASCULAR: Denies any chest pain, palpitations, or recent heart attacks. Hypertensive heart disease. GASTROINTESTINAL: Denies fatty food intolerance. Denies change in bowel habits and gas bloat. ENDOCRINE: Denies current thyroid disorders. Has diabetes type 2. PHYSICAL EXAM: VITALS: Reviewed CONSTITUTIONAL: Well developed and in no acute distress. EYES: Conjuctivae without sclera icterus. Extraocular movements grossly intact. HEAD, EARS, NOSE, THROAT: Moist buccal mucosa. Head is atraumatic, normocephalic. Hears conversational speech. No nasal drainage. RESPIRATORY: Non-labored respirations and equal bilateral excursions. No gross wheezes. CARDIOVASCULAR: Palpable 2+ radial pulses. ABDOMEN: Dressing C/D/I MUSCULOSKELETAL: No clubbing cyanosis or edema SKIN: Warm and well perfused with good skin turgor. NEUROLOGIC: Cranial nerves II through XII grossly intact. No focal or lateralizing signs. PSYCH: Appropriate affect. Alert and oriented to person, place and time. Displays appropriate insight. CLINCAL LABS: Reviewed. WBC elevated 12,000 to over 17,000 today. Today trending downward to over 10,000 ASSESSMENT: 1. Abdominal wall cellulitis, right lower quadrant s/p Excision of right lower quadrant abdominal wall deep subcutaneous tumor 6 x 3 cm and Incision and drainage of abdominal wall abscess 2. Sepsis due to abdominal wall cellulitis 3. Diabetes type 2 with hyperglycemia 4. Morbid obesity due to excess calories, BMI 36.8 5. Hypertensive heart disease. PLAN: 1. Carb Diet 2. Wound Care Consult 3. Vancomycin 4. Pain Control
[2024-04-28 21:26] LABS: Glucose,Whole Blood 279 mg/dL (70-110)
[2024-04-28] MEDS: HYDROcodone/APAP 5-325MG 1 EACH TAB PO PRN (21:33)
[2024-04-29 05:53] LABS: Glucose,Whole Blood 274 mg/dL (70-110)
[2024-04-29] MEDS: polyethylene glycoL 3350 17 GM POWD.PACK PO SCH (09:41)
[2024-04-29 10:15] LABS: HCT 37.7 % (39.6-50.0); HGB 12.6 g/dL (13.0-17.0); MCHC 33.4 g/dL (32.0-37.0); MCV 86.7 FL (80.0-97.0); Mean Platelet Volume 10.7 FL (9.5-12.2); NRBC Per 100 WBC 0 X 10*3/uL (0.00-0.01); Platelet Count 231 X 10*3/uL (140-440); RBC 4.35 X 10*6/uL (4.40-5.60); RDW 13.1 % (11.5-14.5); WBC 6.21 X 10*3/uL (4.50-10.00)
--- NOTE | 2024-04-29 11:55 | P.PN ---
Subjective Progress Note Date: 04/29/24 CHIEF COMPLAINT: Abdominal wall cellulitis HISTORY OF PRESENT ILLNESS: The patient is a 48 year old male who presents after 1 week history of right lower abdominal swelling with redness. He is status po st incision and drainage of right abdominal wall cellulitis with abscess. "I feel much better." REVIEW OF ORGAN SYSTEMS: CONSTITUTIONAL: No fevers or chills. Body mass index 36.8, morbid obesity. CARDIOVASCULAR: Denies any chest pain, palpitations, or recent heart attacks. Hypertensive heart disease. GASTROINTESTINAL: Denies fatty food intolerance. Denies change in bowel habits and gas bloat. ENDOCRINE: Denies current thyroid disorders. Has diabetes type 2. PHYSICAL EXAM: VITALS: Reviewed CONSTITUTIONAL: Well developed and in no acute distress. EYES: Conjuctivae without sclera icterus. Extraocular movements grossly intact. HEAD, EARS, NOSE, THROAT: Moist buccal mucosa. Head is atraumatic, normocephalic. Hears conversational speech. No nasal drainage. RESPIRATORY: Non-labored respirations and equal bilateral excursions. No gross wheezes. CARDIOVASCULAR: Palpable 2+ radial pulses. ABDOMEN: Dressing clean dry intact. [place] drain within the wound. MUSCULOSKELETAL: No clubbing cyanosis or edema SKIN: Warm and well perfused with good skin turgor. NEUROLOGIC: Cranial nerves II through XII grossly intact. No focal or lateralizing signs. PSYCH: Appropriate affect. Alert and oriented to person, place and time. Displays appropriate insight. CLINCAL LABS: Reviewed. WBC trending downward from 17,000 to normal. MICRO: Final cultures pending from deep tissue cultures. ASSESSMENT: 1. Abdominal wall cellulitis, right lower quadrant 2. Sepsis due to abdominal wall cellulitis 3. Diabetes type 2 with hyperglycemia 4. Morbid obesity due to excess calories, BMI 36.8 5. Hypertensive heart disease. PLAN: 1. Change dressing once to twice daily. [place] drain to be discontinued after no drainage for 2 to 3 days. 2. May shower but cover dressing with Tegaderm or order impermeable dressing. 3. Cleanse incision with antibacterial soap and hydrogen peroxide. 4. Stable for discharge once medically cleared. Objective - Vital Signs Vital signs: Vital Signs Temp 98.1 F 04/29/24 07:00 Pulse 67 04/29/24 07:00 Resp 16 04/29/24 02:30 BP 122/77 04/29/24 07:00 Pulse Ox 98 04/29/24 07:00 FiO2 Intake & Output 04/28/24 04/29/24 04/29/24 18:59 06:59 18:59 Intake Total 1415 Balance 1415 Weight 123.15 kg Intake: Intake, IV Titration 1175 Amount Sodium Chloride 0.9% 1, 675 000 ml @ 75 mls/hr IV . [id number] JOSE M Rx#:[id number] Vancomycin 1,750 mg In 500 Sodium Chloride 0.9% 500 ml 500 ml @ 167 mls/hr IVPB Q12H JOSE M Rx#: [id number] Oral 240 Other: Voiding Method Toilet # Voids 1 - Labs CBC & Chem 7: 04/29/24 05:57 04/28/24 05:36 Labs: Abnormal Lab Results - Last 24 Hours (Table) 04/28/24 04/28/24 04/28/24 Range/Units 12:07 16:58 21:24 RBC (4.40-5.60) X 10*6/uL Hgb (13.0-17.0) g/dL Hct (39.6-50.0) % POC Glucose (mg/dL) 241 H 218 H 279 H (70-110) mg/dL 04/29/24 04/29/24 Range/Units 05:49 05:57 RBC 4.35 L (4.40-5.60) X 10*6/uL Hgb 12.6 L (13.0-17.0) g/dL Hct 37.7 L (39.6-50.0) % POC Glucose (mg/dL) 274 H (70-110) mg/dL Microbiology - Last 24 Hours (Table) 04/27/24 20:13 Gram Stain - Preliminary Abdomen Wound Culture - Preliminary Presumptive Staph aureus 04/25/24 20:45 Blood Culture - Preliminary Blood 04/25/24 21:00 Blood Culture - Preliminary Blood 04/25/24 21:00 Anaerobic Culture - Preliminary Abdomen 04/25/24 21:00 Gram Stain - Final Abdomen Wound Culture - Final Staphylococcus aureus
--- NOTE | 2024-04-29 12:26 | P.PN ---
Subjective Progress Note Date: 04/29/24 Hospital course: Patient is a 48-year-old male with a past medical history of hypertension, atrial tachycardia, GERD, type II ijv-rmjpjgt-ciaybaqau diabetes mellitus, and depression. He presented to the hospital on 04/25/2024 secondary to skin abscess and concerns of surrounding infection. Upon arrival to our facility, patient underwent evaluation in the emergency department. Vital signs upon arrival show blood pressure 131/86, heart rate 108, respiratory rate 22, temp 98.0 F, and SpO2 of 97% on room air. Labs completed and reviewed. CBC showing leukocytosis with WBC count of 12.2. BMP showing hyponatremia with sodium 134 and hypocarbia with bicarb of 20 with mild prerenal azotemia with BUN of 21. Blood glucose was elevated at 348. Liver profile unremarkable. Urinalysis positive for ketones and glucose negative for infection. Patient was admitted under services with consultation to general surgery and infectious disease. Abdominal ultrasound was completed showing subcutaneous edema with early abscess formation underwent definitive focal fluid collection reported. Patient underwent I&D of abdominal wall mass on 04/27/2024. Cultures sent to lab for analysis. Physical exam: Patient seen and fully evaluated at the bedside this morning. Postop day 1 status post abdominal I&D. Dressing in place. Patient ambulating in halls and reports pain is controlled with Motrin. Vital signs reviewed and stable. General: Nontoxic, no distress and appears stated age. Derm: Skin warm and dry, normal coloration for ethnicity. Head: Atraumatic, normocephalic and symmetric. Eyes: EOMs intact, no lid lag, and anicteric sclera Mouth: no lip lesions, mucus membranes moist Cardiovascular: regular rate and rhythm with normal S1S2, no murmur, positive posterior tibial pulses bilaterally, and cap refill < 2 seconds. Lungs: Respirations even, regular, and unlabored on room air. Lungs CTA bilaterally, no rhonchi, no rales, no wheezing, and no accessory muscle usage. Abdominal: soft, nontender to palpation, no guarding, no appreciable organomegaly. Dressing intact to abdominal wall cellulitis with mass/abscess. Ext: ROM intact. No gross muscle atrophy, no edema, no contractures Neuro: Speech clear, face symmetrical and CN II-XII grossly intact with no noted focal neuro deficits Psych: Alert and oriented to person, place, time, and situation. Appropriate and pleasant affect. Assessment and Plan of Care: Abdominal abscess with surrounding abdominal wall cellulitis Poorly controlled diabetes mellitus with hyperglycemia, hemoglobin A1c 11.5% Leukocytosis -Abdominal ultrasound was completed showing subcutaneous edema with early abscess formation underwent definitive focal fluid collection reported. -Vancomycin was discontinued by infectious disease and patient started on cefazolin 2 g every 8 hours. -Infectious disease following, reviewed documentation in chart, home pending final culture results for antibiotic determination on discharge.. -General surgery following and took patient for I&D on 04/27/2024 and recommending removal of [place] drain after no drainage for 2 to 3 days. -Patient underwent I&D of abdominal wall mass on 04/27/2024. Cultures sent to lab for analysis and preliminary results positive: presumptive for Staph aureus. -Symptomatic care and pain management with Tylenol 650 mg every 6 hours as needed for mild pain/fever, [place] 5/325 mg every 4 hours as needed for moderate pain, and Dilaudid 0.5 mg IVP every 3 hours as needed for severe pain. -Continue Levemir 15 units daily and glycemic protocol with NovoLog sliding scale. -Hemoglobin A1c 11.5% -CRP elevated at 2.6. -Blood culture showing no growth to date. Hypomagnesemia Magnesium 1.7. Orders placed for magnesium sulfate 2 g IVPB. Will continue to monitor for improvement/resolution with repeat magnesium levels with a.m. labs. Will place additional orders as indicated based upon these findings. History of atrial tachycardia -Continue daily medication regimen with metoprolol succinate 50 mg daily. Hypertension -Continue daily medication regimen with lisinopril 20 mg daily and metoprolol 50 mg daily. GERD -Continue daily medication regimen with Protonix 40 mg daily. Depression -Continue daily medication regimen with Zoloft 100 mg daily. Data and imaging reviewed: -Vital signs reviewed. Blood pressure 122/77, heart rate 67, respiratory rate 16, temp 98.1 F, and SpO2 of 98% on room air. -Morning labs completed and reviewed. CBC showing stable normocytic anemia with hemoglobin of 12.6 otherwise normal findings with WBC count of 6.21 and platelet count of 231. Blood glucose levels remain elevated in 200s ranging from 218-279 over the past 24 hours but showing improvement. Awaiting CMP and magnesium level results. Will follow-up on these results once available and place further orders as/if indicated based upon these findings. CODE STATUS: Full code DVT prophylaxis: Lovenox Anticipated discharge date: Pending clinical course, likely within the next [address]: Home Patient was seen independently by Nurse Pracitioner. This document was prepared using HIt[employer] dictation software. Please allow for errors in marketing support assistant, while rare they do occur. I reviewed the documentation as provided by the CASEY above, who is the original author of this note. I agree with the documented assessment and plan, with the following changes: none Objective - Vital Signs Vital signs: Vital Signs Temp 98.1 F 04/29/24 07:00 Pulse 67 04/29/24 07:00 Resp 16 04/29/24 02:30 BP 122/77 04/29/24 07:00 Pulse Ox 98 04/29/24 07:00 FiO2 Intake & Output 04/28/24 04/29/24 04/29/24 18:59 06:59 18:59 Intake Total 1415 Balance 1415 Weight 123.15 kg Intake: Intake, IV Titration 1175 Amount Sodium Chloride 0.9% 1, 675 000 ml @ 75 mls/hr IV . [id number] JOSE M Rx#:[id number] Vancomycin 1,750 mg In 500 Sodium Chloride 0.9% 500 ml 500 ml @ 167 mls/hr IVPB Q12H JOSE M Rx#: [id number] Oral 240 Other: Voiding Method Toilet # Voids 1 - Labs CBC & Chem 7: 04/29/24 05:57 04/29/24 05:57 Labs: Abnormal Lab Results - Last 24 Hours (Table) 04/28/24 04/28/24 04/28/24 Range/Units 12:07 16:58 21:24 POC Glucose (mg/dL) 241 H 218 H 279 H (70-110) mg/dL 04/29/24 Range/Units 05:49 POC Glucose (mg/dL) 274 H (70-110) mg/dL Microbiology - Last 24 Hours (Table) 04/27/24 20:13 Gram Stain - Preliminary Abdomen Wound Culture - Preliminary Presumptive Staph aureus 04/25/24 20:45 Blood Culture - Preliminary Blood 04/25/24 21:00 Blood Culture - Preliminary Blood 04/25/24 21:00 Anaerobic Culture - Preliminary Abdomen 04/25/24 21:00 Gram Stain - Final Abdomen Wound Culture - Final Staphylococcus aureus
[2024-04-29 12:30] LABS: Glucose,Whole Blood 243 mg/dL (70-110)
[2024-04-29 12:54] LABS: Magnesium 1.4 mg/dL (1.5-2.4)
[2024-04-29 13:00] LABS: BUN/Creat Ratio 17.14 Ratio (12.00-20.00); Chloride 104 mmol/L (96-109); Glucose 263 mg/dL (70-110); Potassium 4.6 mmol/L (3.5-5.5); Sodium 138 mmol/L (135-145)
[2024-04-29 13:01] LABS: ALT 14 U/L (10-49); AST 13 U/L (14-35); Albumin 3.8 g/dL (3.8-4.9); Albumin/Globulin Ratio 1.41 Ratio (1.60-3.17); Alkaline Phosphatase 89 U/L (41-126); Carbon Dioxide 23.1 mmol/L (21.6-31.8); Globulin 2.7 g/dL (1.6-3.3); Total Bilirubin 0.4 mg/dL (0.3-1.2); Total Protein 6.5 g/dL (6.2-8.2)
--- NOTE | 2024-04-29 13:32 | P.PN ---
Subjective Progress Note Date: 04/29/24 Principal diagnosis: Reason for follow-up abdominal wall abscess and cellulitis Patient is a 48-year-old male with a past medical history significant for diabetes mellitus hypertension asthma depression, patient presenting to the hospital for evaluation of right lower abdominal wall pain swelling and redness has been diagnosed with abscess and cellulitis. Patient did have excision of the right lower quadrant abdominal wall deep subcutaneous tumor and drainage of the abscess procedure completed on 04/27/2024. On today's evaluation that is 04/29/2024, patient has been afebrile, patient is breathing comfortably and is currently on room air, patient denies having any significant cough no chest pain shortness of breath, patient denies nausea vomiting or diarrhea and right lower quadrant abdominal pain has decreased intensity mention feeling better. Patient white count 6.1 creatinine 0.7 local culture with MSSA blood culture negative Objective - Vital Signs Vital signs: Vital Signs Temp 98.1 F 04/29/24 07:00 Pulse 67 04/29/24 07:00 Resp 16 04/29/24 02:30 BP 122/77 04/29/24 07:00 Pulse Ox 98 04/29/24 07:00 FiO2 Intake & Output 04/28/24 04/29/24 04/29/24 18:59 06:59 18:59 Intake Total 1415 Balance 1415 Weight 123.15 kg Intake: Intake, IV Titration 1175 Amount Sodium Chloride 0.9% 1, 675 000 ml @ 75 mls/hr IV . [id number] JOSE M Rx#:[id number] Vancomycin 1,750 mg In 500 Sodium Chloride 0.9% 500 ml 500 ml @ 167 mls/hr IVPB Q12H JOSE M Rx#: [id number] Oral 240 Other: Voiding Method Toilet # Voids 1 - Exam GENERAL DESCRIPTION: Middle-age male up in the chair in no distress RESPIRATORY SYSTEM: Unlabored breathing , decreased breath sounds at bases HEART: S1 S2 regular rate and rhythm , ABDOMEN: Soft , right lower quadrant swelling redness slightly decreased minimal drainage on the dressing EXTREMITIES: No edema feet - Labs CBC & Chem 7: 04/29/24 05:57 04/29/24 05:57 Labs: Abnormal Lab Results - Last 24 Hours (Table) 04/28/24 04/28/24 04/28/24 Range/Units 12:07 16:58 21:24 RBC (4.40-5.60) X 10*6/uL Hgb (13.0-17.0) g/dL Hct (39.6-50.0) % POC Glucose (mg/dL) 241 H 218 H 279 H (70-110) mg/dL 04/29/24 04/29/24 Range/Units 05:49 05:57 RBC 4.35 L (4.40-5.60) X 10*6/uL Hgb 12.6 L (13.0-17.0) g/dL Hct 37.7 L (39.6-50.0) % POC Glucose (mg/dL) 274 H (70-110) mg/dL Microbiology - Last 24 Hours (Table) 04/27/24 20:13 Gram Stain - Preliminary Abdomen Wound Culture - Preliminary Presumptive Staph aureus 04/25/24 20:45 Blood Culture - Preliminary Blood 04/25/24 21:00 Blood Culture - Preliminary Blood 04/25/24 21:00 Anaerobic Culture - Preliminary Abdomen 04/25/24 21:00 Gram Stain - Final Abdomen Wound Culture - Final Staphylococcus aureus Assessment and Plan (1) Abdominal wall abscess Current Visit: Yes Status: Acute Code(s): L02.211 - CUTANEOUS ABSCESS OF ABDOMINAL WALL SNOMED Code(s): 82015529 (2) Abdominal wall cellulitis Current Visit: Yes Status: Acute Code(s): L03.311 - CELLULITIS OF ABDOMINAL WALL SNOMED Code(s): 21381674 (3) Leukocytosis Current Visit: Yes Status: Acute Code(s): D72.829 - ELEVATED WHITE BLOOD CELL COUNT, UNSPECIFIED SNOMED Code(s): 550251188 Plan: 1patient presented to hospital with right lower quadrant abdominal wall pain swelling and redness with the area of induration and some in fluid collection on the ultrasound concerning for abscess and cellulitis likely from gram-positive skin norma 2-local culture currently growing MSSA blood culture has been negative 3-patient is s/p surgical debridement and drainage with cultures currently also growing Staph aureus 4-we will discontinue vancomycin start the patient cefazolin 2 g every 8hr, will reevaluate patient tomorrow more likely will be able to go on oral antibiotics question concern answered Dictation was produced using Packet Designation software. please excuse any grammatical, word or spelling errors. Time with Patient: Less than 30
[2024-04-29 17:46] LABS: Glucose,Whole Blood 255 mg/dL (70-110)
[2024-04-29 20:41] LABS: Glucose,Whole Blood 239 mg/dL (70-110)
[2024-04-30] MEDS ORDERED: VANCOMYCIN TROUGH DUE 1 EACH MISC MISCELLANE ONE (05:00)
[2024-04-30 06:28] LABS: Glucose,Whole Blood 325 mg/dL (70-110)
--- NOTE | 2024-04-30 09:48 | CDI ---
Documentation Clarification Form Date: 04/30/2024 09:33:03 AM From: Shahla Garner RN CCDS Phone: [phone] Admit Date: 04/25/2024 09:40:00 PM Patient Name: Candido Bennett Visit Number: [id number] Discharge Date: ATTENTION: The Clinical Documentation Specialists (CDI) and [facility] Coding Staff appreciate your assistance in clarifying documentation. Please respond to the clarification below the line at the bottom and electronically sign. The CDI & [facility] Coding staff will review the response and follow-up if needed. Please note: Queries are made part of the Legal Health Record. If you have any questions, please contact the author of this message via ITS. Dr. Estefany Marcelino Sepsis is documented 04/26 Surgical consult through 04/29 Surgical notes] which may lack sufficient clinical evidence/support in the medical record. Additional clarification is requested. History/Risk Factors: 48 year old male presents to the ED with abdominal skin ulcer that started out as a pimple which he attributed to a bug bite that had purulent drainage. Medical History: Type2 DM, Asthma, Hypertension. 04/26, HP. Clinical Indicators: VSS, 04/25: B/P 131/86, HR 108, Temp 98.0 F oral, RR 22, SpO2 97% ra BMI 36.8kg LABS, 04/25: Wbc 12.2, Neutrophils 9.7 Wound culture, 04/25: Staphylococcus aureus Wound culture, 04/27: Preliminary Presumptive Staph Aureus US Abdomen, 04/26: Subcutaneous edema possibly early abscess formation. Treatment:04/25 0.9ns 1L IV Bolus; 04/26 04/29 0.9NS 75cchr; 04/26 Ceftriaxone Ivpb x 1; 04/26 Vancomycin Ivpb; 04/26 Vancomycin IVPB Q8H; 04/27 04/29 Vancomycin IVPB Q12H; 04/29 Cefazolin IVPB Q8H After work up and study, please clarify which diagnosis is most appropriate? [ ] Sepsis ruled out [ x ] Sepsis treated prophylactically [ ] Sepsis is a valid diagnosis as evidence by the following: (Please add rationale): [ ] Other, please specify [ ] Unable to determine SIRS Criteria: 2 or more of the following may indicate SIRS Temperature < 96.8F (36C) or > 101.0F (38.3C) Heart Rate > 90 bpm Respiratory Rate > 20 breaths/min or PaCO2 < 32 mmHg White Blood Cell Count > 12,000 or < 4,000 cells/mm3 or > 10% bands (Template Last Reviewed: October 2023) MTDD
[2024-04-30 12:13] LABS: Glucose,Whole Blood 235 mg/dL (70-110)
[2024-04-30] MEDS: valACYclovir HCL 1,000 MG TABLET PO SCH (13:33)
[2024-04-30] MEDS: diphenhydrAMINE 50 MG/ML 1 ML VIAL IVP STA (13:57)
--- NOTE | 2024-04-30 16:28 | P.PN ---
Subjective Progress Note Date: 04/30/24 Hospital course: Patient is a 48-year-old male with a past medical history of hypertension, atrial tachycardia, GERD, type II ylk-vpfcdha-dekupyjxi diabetes mellitus, and depression. He presented to the hospital on 04/25/2024 secondary to skin abscess and concerns of surrounding infection. Upon arrival to our facility, patient underwent evaluation in the emergency department. Vital signs upon arrival show blood pressure 131/86, heart rate 108, respiratory rate 22, temp 98.0 F, and SpO2 of 97% on room air. Labs completed and reviewed. CBC showing leukocytosis with WBC count of 12.2. BMP showing hyponatremia with sodium 134 and hypocarbia with bicarb of 20 with mild prerenal azotemia with BUN of 21. Blood glucose was elevated at 348. Liver profile unremarkable. Urinalysis positive for ketones and glucose negative for infection. Patient was admitted under services with consultation to general surgery and infectious disease. Abdominal ultrasound was completed showing subcutaneous edema with early abscess formation underwent definitive focal fluid collection reported. Patient underwent I&D of abdominal wall mass on 04/27/2024. Cultures sent to lab for analysis. Physical exam: Patient seen and fully evaluated at the bedside this morning. Postop day 3 status post abdominal I&D. Cellulitis showing significant improvement of erythema since I&D completion, sutures intact and [place] drain in place. Patient reports overnight and developing rash to right anterior thigh and right medial tobin. He reports significant itching continues to report pain controlled at this time. Vital signs reviewed and stable. General: Nontoxic, no distress and appears stated age. Derm: Skin warm and dry, normal coloration for ethnicity. Abdominal wall cellulitis showing significant improvement of erythema since I&D completion, sutures intact and [place] drain in place. Patient was newly developed rash with blisters and moderate erythema/surrounding cellulitis to right anterior t high and medial tobin region. Head: Atraumatic, normocephalic and symmetric. Eyes: EOMs intact, no lid lag, and anicteric sclera Mouth: no lip lesions, mucus membranes moist Cardiovascular: regular rate and rhythm with normal S1S2, no murmur, positive posterior tibial pulses bilaterally, and cap refill < 2 seconds. Lungs: Respirations even, regular, and unlabored on room air. Lungs CTA bilaterally, no rhonchi, no rales, no wheezing, and no accessory muscle usage. Abdominal: soft, nontender to palpation, no guarding, no appreciable organomegaly. Ext: ROM intact. No gross muscle atrophy, no edema, no contractures Neuro: Speech clear, face symmetrical and CN II-XII grossly intact with no noted focal neuro deficits Psych: Alert and oriented to person, place, time, and situation. Appropriate and pleasant affect. Assessment and Plan of Care: Abdominal abscess with surrounding abdominal wall cellulitis, MSSA Newly developed rash with blisters and moderate erythema/cellulitis to Right anterior thigh and medial tobin region, rule out shingles Poorly controlled diabetes mellitus with hyperglycemia, hemoglobin A1c 11.5% Leukocytosis -Continue IV antibiotics with cefazolin 2 g every 8 hours. -Infectious disease following, discussed patient in depth with infectious disease provider including newly developed rash with blisters. -Patient being started on Valtrex 1000 mg every 8 hours and VZV DNA by PCR culture to be obtained. -General surgery following and took patient for I&D on 04/27/2024 and recommending removal of [place] drain after no drainage for 2 to 3 days. -Patient underwent I&D of abdominal wall mass on 04/27/2024. Cultures sent to lab for analysis and positive for MSSA -Symptomatic care and pain management with Tylenol 650 mg every 6 hours as needed for mild pain/fever, [place] 5/325 mg every 4 hours as needed for moderate pain, and Dilaudid 0.5 mg IVP every 3 hours as needed for severe pain. -Patient on Levemir 10 units nightly and to continue Levemir 15 units daily with glycemic protocol and NovoLog sliding scale. -Hemoglobin A1c 11.5% -CRP elevated at 2.6. -Blood culture showing no growth to date. Hypomagnesemia Magnesium 1.4. Orders placed for magnesium sulfate 2 g IVPB. Will continue to monitor for improvement/resolution with repeat magnesium levels with a.m. labs. Will place additional orders as indicated based upon these findings. History of atrial tachycardia -Continue daily medication regimen with metoprolol succinate 50 mg daily. Hypertension -Continue daily medication regimen with lisinopril 20 mg daily and metoprolol 50 mg daily. GERD -Continue daily medication regimen with Protonix 40 mg daily. Depression -Continue daily medication regimen with Zoloft 100 mg daily. Data and imaging reviewed: -Vital signs reviewed. Blood pressure soft this morning at 99/66, heart rate 84, respiratory rate 20, temp 97.4 F, and SpO2 of 96% on room air -Morning labs completed and reviewed. I&D Wound Cultures positive for MSSA. Glucose levels remain elevated ranging from 239-325 over the past 24 hours with morning fasting glucose of 325. In addition to Levemir 15 units daily will add on Levemir 15 units nightly to current medication regimen, patient to continue with NovoLog sliding scale. CODE STATUS: Full code DVT prophylaxis: Lovenox Anticipated discharge date: Pending clinical course Anticipated discharge place: Home Patient was seen independently by Nurse Pracitioner. This document was prepared using Sensopia dictation software. Please allow for errors in college dean, while rare they do occur. . I reviewed the documentation as provided by the CASEY above, who is the original author of this note. I agree with the documented assessment and plan, with the following changes: none Objective - Vital Signs Vital signs: Vital Signs Temp 97.4 F L 04/30/24 07:00 Pulse 84 04/30/24 07:00 Resp 20 04/30/24 07:00 BP 99/66 04/30/24 07:00 Pulse Ox 96 04/30/24 07:00 FiO2 Intake & Output 04/29/24 04/30/24 04/30/24 18:59 06:59 18:59 Intake Total 118 500 Balance 118 500 Intake: Oral 118 500 Other: Voiding Method Toilet # Voids 1 3 # Bowel Movements 4 - Labs CBC & Chem 7: 04/29/24 05:57 04/29/24 05:57 Labs: Abnormal Lab Results - Last 24 Hours (Table) 04/29/24 04/29/24 04/29/24 Range/Units 05:57 05:57 12:28 RBC 4.35 L (4.40-5.60) X 10*6/uL Hgb 12.6 L (13.0-17.0) g/dL Hct 37.7 L (39.6-50.0) % Glucose 263 H (70-110) mg/dL POC Glucose (mg/dL) 243 H (70-110) mg/dL Magnesium 1.4 L (1.5-2.4) mg/dL AST 13 L (14-35) U/L Albumin/Globulin Ratio 1.41 L (1.60-3.17) Ratio 04/29/24 04/29/24 04/30/24 Range/Units 17:34 20:40 06:27 RBC (4.40-5.60) X 10*6/uL Hgb (13.0-17.0) g/dL Hct (39.6-50.0) % Glucose (70-110) mg/dL POC Glucose (mg/dL) 255 H 239 H 325 H (70-110) mg/dL Magnesium (1.5-2.4) mg/dL AST (14-35) U/L Albumin/Globulin Ratio (1.60-3.17) Ratio Microbiology - Last 24 Hours (Table) 04/27/24 20:13 Gram Stain - Preliminary Abdomen Wound Culture - Preliminary Presumptive Staph aureus 04/25/24 20:45 Blood Culture - Preliminary Blood 04/25/24 21:00 Blood Culture - Preliminary Blood
--- NOTE | 2024-04-30 16:59 | P.PN ---
Subjective Progress Note Date: 04/30/24 CHIEF COMPLAINT: Abdominal wall cellulitis HISTORY OF PRESENT ILLNESS: The patient is a 48 year old male status post debridement of abdominal wall. He has now developed new lesions along the right lower extremity. Per discussion with patient, he has been seen by infectious disease with concern of shingles. No fevers or chills. REVIEW OF ORGAN SYSTEMS: CONSTITUTIONAL: No fevers or chills. Body mass index 36.8, morbid obesity. CARDIOVASCULAR: Denies any chest pain, palpitations, or recent heart attacks. Hypertensive heart disease. GASTROINTESTINAL: Denies fatty food intolerance. Denies change in bowel habits and gas bloat. ENDOCRINE: Denies current thyroid disorders. Has diabetes type 2. PHYSICAL EXAM: VITALS: Reviewed CONSTITUTIONAL: Well developed and in no acute distress. EYES: Conjuctivae without sclera icterus. Extraocular movements grossly intact. HEAD, EARS, NOSE, THROAT: Moist buccal mucosa. Head is atraumatic, normocephalic. Hears conversational speech. No nasal drainage. RESPIRATORY: Non-labored respirations and equal bilateral excursions. No gross wheezes. CARDIOVASCULAR: Palpable 2+ radial pulses. ABDOMEN: Decreased cellulitis and drainage along the right lower abdomen incision. [place] drain intact. MUSCULOSKELETAL: No clubbing cyanosis or edema SKIN: Warm and well perfused with good skin turgor. 6 cm blistering along the right upper medial thigh and 3 cm eruption along the right lower extremity NEUROLOGIC: Cranial nerves II through XII grossly intact. No focal or lateralizing signs. PSYCH: Appropriate affect. Alert and oriented to person, place and time. Displays appropriate insight. CLINCAL LABS: Reviewed. WBC normal MICRO: Final cultures consistent with methicillin sensitive Staph aureus ASSESSMENT: 1. Abdominal wall cellulitis, right lower quadrant 2. Sepsis due to abdominal wall cellulitis 3. Diabetes type 2 with hyperglycemia 4. Morbid obesity due to excess calories, BMI 36.8 5. Hypertensive heart disease. 6. Methicillin sensitive Staph aureus 7. Shingles, new PLAN: 1. He has new eruptions of the right lower extremity for which patient has been placed on an antiviral. No acute surgical invention needed 2. Continue with Porsche drain until no drainage for 2 to 3 days. 3. Follow-up as outpatient upon discharge Objective - Vital Signs Vital signs: Vital Signs Temp 97.6 F 04/30/24 14:47 Pulse 83 07/08/24 14:47 Resp 18 04/30/24 14:47 BP 109/75 04/30/24 14:47 Pulse Ox 97 04/30/24 14:47 FiO2 Intake & Output 04/29/24 04/30/24 04/30/24 18:59 06:59 18:59 Intake Total 118 500 572 Balance 118 500 572 Intake: Oral 118 500 572 Other: Voiding Method Toilet Toilet # Voids 1 3 2 # Bowel Movements 4 - Labs CBC & Chem 7: 04/29/24 05:57 04/29/24 05:57 Labs: Abnormal Lab Results - Last 24 Hours (Table) 04/29/24 04/29/24 04/30/24 Range/Units 17:34 20:40 06:27 POC Glucose (mg/dL) 255 H 239 H 325 H (70-110) mg/dL 04/30/24 Range/Units 12:10 POC Glucose (mg/dL) 235 H (70-110) mg/dL Microbiology - Last 24 Hours (Table) 04/25/24 21:00 Anaerobic Culture - Final Abdomen 04/27/24 20:13 Anaerobic Culture - Preliminary Abdomen 04/27/24 20:13 Gram Stain - Final Abdomen Wound Culture - Final Staphylococcus aureus
--- NOTE | 2024-04-30 17:09 | P.PN ---
Subjective Progress Note Date: 04/30/24 Principal diagnosis: Reason for follow-up abdominal wall abscess and cellulitis Patient is a 48-year-old male with a past medical history significant for diabetes mellitus hypertension asthma depression, patient presenting to the hospital for evaluation of right lower abdominal wall pain swelling and redness has been diagnosed with abscess and cellulitis. Patient did have excision of the right lower quadrant abdominal wall deep subcutaneous tumor and drainage of the abscess procedure completed on 04/27/2024. On today's evaluation that is 04/30/2024, Patient is afebrile this morning and denies any chills, patient mention breathing comfortably and is currently on room air, patient denies any chest pain occasional cough patient, the patient right lower quadrant abdominal area of swelling duration has much improved patient will develop any irritation to the right thigh and right lower leg that the patient and his nurse noticed earlier this morning no other rashes. No new lab has been repeated today Objective - Vital Signs Vital signs: Vital Signs Temp 97.4 F L 04/30/24 07:00 Pulse 85 04/30/24 08:00 Resp 18 04/30/24 08:00 BP 99/66 04/30/24 07:00 Pulse Ox 96 04/30/24 07:00 FiO2 Intake & Output 04/29/24 04/30/24 04/30/24 18:59 06:59 18:59 Intake Total 118 500 350 Balance 118 500 350 Intake: Oral 118 500 350 Other: Voiding Method Toilet Toilet # Voids 1 3 # Bowel Movements 4 - Exam GENERAL DESCRIPTION: Middle-age male up in the chair in no distress RESPIRATORY SYSTEM: Unlabored breathing , decreased breath sounds at bases HEART: S1 S2 regular rate and rhythm , ABDOMEN: Soft , right lower quadrant swelling redness slightly decreased minimal drainage on the dressing EXTREMITIES: Right thigh and lower leg did have areas of vesicle and redness corresponding distribution of L4 dermatome - Labs CBC & Chem 7: 04/29/24 05:57 04/29/24 05:57 Labs: Abnormal Lab Results - Last 24 Hours (Table) 04/29/24 04/29/24 04/29/24 Range/Units 05:57 05:57 12:28 RBC 4.35 L (4.40-5.60) X 10*6/uL Hgb 12.6 L (13.0-17.0) g/dL Hct 37.7 L (39.6-50.0) % Glucose 263 H (70-110) mg/dL POC Glucose (mg/dL) 243 H (70-110) mg/dL Magnesium 1.4 L (1.5-2.4) mg/dL AST 13 L (14-35) U/L Albumin/Globulin Ratio 1.41 L (1.60-3.17) Ratio 04/29/24 04/29/24 04/30/24 Range/Units 17:34 20:40 06:27 RBC (4.40-5.60) X 10*6/uL Hgb (13.0-17.0) g/dL Hct (39.6-50.0) % Glucose (70-110) mg/dL POC Glucose (mg/dL) 255 H 239 H 325 H (70-110) mg/dL Magnesium (1.5-2.4) mg/dL AST (14-35) U/L Albumin/Globulin Ratio (1.60-3.17) Ratio Microbiology - Last 24 Hours (Table) 04/27/24 20:13 Gram Stain - Preliminary Abdomen Wound Culture - Preliminary Presumptive Staph aureus Assessment and Plan (1) Abdominal wall abscess Current Visit: Yes Status: Acute Code(s): L02.211 - CUTANEOUS ABSCESS OF ABDOMINAL WALL SNOMED Code(s): 17089646 (2) Abdominal wall cellulitis Current Visit: Yes Status: Acute Code(s): L03.311 - CELLULITIS OF ABDOMINAL WALL SNOMED Code(s): 46698772 (3) Leukocytosis Current Visit: Yes Status: Acute Code(s): D72.829 - ELEVATED WHITE BLOOD CELL COUNT, UNSPECIFIED SNOMED Code(s): 067233688 Plan: 1patient presented to hospital with right lower quadrant abdominal wall pain swelling and redness with the area of induration and some in fluid collection on the ultrasound concerning for abscess and cellulitis likely from gram-positive skin norma 2-local culture currently growing MSSA blood culture has been negative 3-patient is s/p surgical debridement and drainage with cultures currently also growing Staph aureus 4-patient to continue cefazolin 2 g every 8 hours 5patient with new area of physical cellulitis to the thigh and leg question of shingles as they are in the distribution of L4 dermatome we will try to obtain viral swab from the area for VZV PCR empirically add Valtrex and monitor very closely detailed discussion with the SUPERVISOR PATCHING for admitting team Dictation was produced using [employer] dictation software. please excuse any grammatical, word or spelling errors. Time with Patient: Greater than 30
[2024-04-30 17:15] LABS: Glucose,Whole Blood 256 mg/dL (70-110)
[2024-04-30] MEDS: MAGNESIUM SULFATE-D5W PMX 1 GM in DEXTROSE/WATER 1 100ML.BAG IVPB SCH (17:30)
[2024-04-30 20:30] LABS: Glucose,Whole Blood 326 mg/dL (70-110)
[2024-04-30] MEDS: INSULIN DETEMIR (LEVEMIR) 100 UNIT/ML SYR SQ SCH (21:27)
[2024-04-30] MEDS: diphenhydrAMINE 50 MG/ML 1 ML VIAL IVP PRN (23:12)
[2024-05-01 06:09] LABS: Glucose,Whole Blood 221 mg/dL (70-110)
[2024-05-01 07:41] LABS: ALT 20 U/L (4-49); AST 28 U/L (17-59); African American GFR (CKD) >90 (>60 ml/min/1.73 sqM); Albumin 3.8 g/dL (3.5-5.0); Albumin/Globulin Ratio 1.3; Alkaline Phosphatase 96 U/L (38-126); Anion Gap 12 mmol/L; Blood Urea Nitrogen 15 mg/dL (9-20); C Reactive Protein 1.8 mg/dL (<1.0); Calcium 9.2 mg/dL (8.4-10.2); Carbon Dioxide 22 mmol/L (22-30); Chloride 104 mmol/L (98-107); Globulin 2.9 g/dL; Glucose 213 mg/dL (74-99); HCT 41.5 % (39.0-53.0); MCHC 31.9 g/dL (31.0-37.0); MCV 87.8 fL (80.0-100.0); Magnesium 1.6 mg/dL (1.6-2.3); Mean Platelet Volume 8.5; Non-African American GFR(CKD) >90 (>60 ml/min/1.73 sqM); Platelet Count 254 k/uL (150-450); Potassium 4.1 mmol/L (3.5-5.1); RBC 4.73 m/uL (4.30-5.90); RDW 13.4 % (11.5-15.5); Sodium 138 mmol/L (137-145); Total Bilirubin 0.8 mg/dL (0.2-1.3); Total Protein 6.7 g/dL (6.3-8.2); WBC 7.5 k/uL (3.8-10.6)
[2024-05-01 07:43] LABS: HGB 13.2 gm/dL (13.0-17.5)
--- NOTE | 2024-05-01 11:34 | P.CONS ---
History of Present Illness - Reason for Consult Consult date: 05/01/24 wound care - History of Present Illness This is a 48-year-old patient with cellulitis to the right lower quadrant who underwent a I&D currently with [place] drains to the site. The incision is well-approximated with sutures in place. [place] drainage to the distal portion of the incision. Patient has cellulitis noted to the right upper thigh and right medial calf. Patient has no open ulcerations at this time. Review Of Systems: Constitutional: No fever, no chills, no night sweats. No weight change. No weakness, fatigue or lethargy. No daytime sleepiness. Integumentary:reports wounds, no lesions. No rash or pruritus. No unusual bruising. No change in hair or nails. Physical exam: General Appearance: Alert, cooperative, no distress, appears stated age. Skin: See HPI all other Skin color, texture, tugor normal, no rashes or lesions. Neurologic: Alert oriented x3 Assessment: 1. Cellulitis right lower quadrant abdominal wall 2. Cellulitis right lower extremity Plan: 1.Continue to follow surgeon orders for dressing changes to the incision site. No dressing orders for the right lower extremity. Thank you for the consultation any questions please contact the wound care center DNP note has been reviewed and discussed with Dr. Parker and the impression and plan of care has been directed as dictated. Past Medical History Past Medical History: Asthma, Diabetes Mellitus, Hypertension Additional Past Medical History / Comment(s): arrythymia tachycardia 125 History of Any Multi-Drug Resistant Organisms: None Reported Past Surgical History: Appendectomy Past Anesthesia/Blood Transfusion Reactions: No Reported Reaction Past Psychological History: Depression Smoking Status: Never smoker Past Alcohol Use History: None Reported Past Drug Use History: None Reported - Past Family History Father Family Medical History: No Reported History Mother Family Medical History: Hypertension Medications and Allergies Home Medications Medication Instructions Recorded Confirmed Type Ibuprofen [Motrin Ib] 800 mg PO Q8H PRN 04/26/24 04/26/24 History Magnesium(Unknown Dose) 1 tab PO DAILY PRN 04/26/24 04/26/24 History Metoprolol Succinate [Toprol XL] 50 mg PO DAILY 04/26/24 04/26/24 History Multivitamins, Thera [Multivitamin 1 tab PO DAILY 04/26/24 04/26/24 History (formulary)] Omeprazole Magnesium [PriLOSEC OTC] 20 mg PO DAILY 04/26/24 04/26/24 History Sertraline [Zoloft] 100 mg PO DAILY 04/26/24 04/26/24 History lisinopriL [Zestril] 20 mg PO DAILY 04/26/24 04/26/24 History metFORMIN HCL [Glucophage] 1,000 mg PO AC-BID 04/26/24 04/26/24 History Allergies Allergy/AdvReac Type Severity Reaction Status Date / Time bee venom protein (honey bee) Allergy Anaphylaxis Verified 04/26/24 12:20 Physical Exam Vitals: Vital Signs Temp Pulse Pulse Resp BP BP Pulse Ox 05/01/24 07:00 98.1 F 70 14 95/60 100 05/01/24 01:56 98.1 F 74 16 103/67 97 04/30/24 21:27 83 04/30/24 20:00 98.1 F 81 18 104/67 94 L 04/30/24 14:47 97.6 F 83 18 109/75 97 Intake and Output 04/30/24 05/01/24 05/01/24 22:59 06:59 14:59 Intake Total 520 Balance 520 Intake: Oral 520 Other: Voiding Method Toilet # Voids 2 2 Results CBC & Chem 7: 05/01/24 06:42 05/01/24 06:42 Labs: Abnormal Lab Results - Last 24 Hours (Table) 04/30/24 04/30/24 04/30/24 Range/Units 12:10 17:13 20:29 Creatinine (0.66-1.25) mg/dL Glucose (74-99) mg/dL POC Glucose (mg/dL) 235 H 256 H 326 H (70-110) mg/dL C-Reactive Protein (<1.0) mg/dL 05/01/24 05/01/24 Range/Units 06:07 06:42 Creatinine 0.58 L (0.66-1.25) mg/dL Glucose 213 H (74-99) mg/dL POC Glucose (mg/dL) 221 H (70-110) mg/dL C-Reactive Protein 1.8 H (<1.0) mg/dL Microbiology - Last 24 Hours (Table) 04/25/24 20:45 Blood Culture - Final Blood 04/25/24 21:00 Blood Culture - Final Blood 04/25/24 21:00 Anaerobic Culture - Final Abdomen 04/27/24 20:13 Anaerobic Culture - Preliminary Abdomen 04/27/24 20:13 Gram Stain - Final Abdomen Wound Culture - Final Staphylococcus aureus Assessment and Plan (1) Abdominal wall abscess Current Visit: Yes Status: Acute Code(s): L02.211 - CUTANEOUS ABSCESS OF ABDOMINAL WALL SNOMED Code(s): 05370739 (2) Abdominal wall cellulitis Current Visit: Yes Status: Acute Code(s): L03.311 - CELLULITIS OF ABDOMINAL WALL SNOMED Code(s): 34555328 (3) Cellulitis Current Visit: Yes Status: Acute Code(s): L03.90 - CELLULITIS, UNSPECIFIED SNOMED Code(s): 261480466
[2024-05-01 12:12] LABS: Glucose,Whole Blood 239 mg/dL (70-110)
--- NOTE | 2024-05-01 13:14 | P.PN ---
Subjective Progress Note Date: 05/01/24 Principal diagnosis: Reason for follow-up abdominal wall abscess and cellulitis Patient is a 48-year-old male with a past medical history significant for diabetes mellitus hypertension asthma depression, patient presenting to the hospital for evaluation of right lower abdominal wall pain swelling and redness has been diagnosed with abscess and cellulitis. Patient did have excision of the right lower quadrant abdominal wall deep subcutaneous tumor and drainage of the abscess procedure completed on 04/27/2024. On today's evaluation that is 05/01/2024,the patient denies any fever or any chills, patient is breathing comfortably on room air, the patient denies chest pain shortness of breath and no significant cough, patient denies abdominal pain, no nausea vomiting or diarrhea. Patient abdominal wall area of swelling duration has much improved still have some discomfort to the right thigh and right lower leg but no worsening. Patient white count is 7.5 creatinine 0.58 Objective - Vital Signs Vital signs: Vital Signs Temp 98.1 F 05/01/24 07:00 Pulse 70 05/01/24 07:00 Resp 14 05/01/24 07:00 BP 95/60 05/01/24 07:00 Pulse Ox 100 05/01/24 07:00 FiO2 Intake & Output 04/30/24 05/01/24 05/01/24 18:59 06:59 18:59 Intake Total 572 757 Balance 572 757 Intake: Oral 572 757 Other: Voiding Method Toilet Toilet # Voids 2 2 - Exam GENERAL DESCRIPTION: Middle-age male up in the chair in no distress RESPIRATORY SYSTEM: Unlabored breathing , decreased breath sounds at bases HEART: S1 S2 regular rate and rhythm , ABDOMEN: Soft , right lower quadrant swelling redness slightly decreased minimal drainage on the dressing EXTREMITIES: Right thigh and lower leg did have areas of vesicle and redness corresponding distribution of L4 dermatome - Labs CBC & Chem 7: 05/01/24 06:42 05/01/24 06:42 Labs: Abnormal Lab Results - Last 24 Hours (Table) 04/30/24 04/30/24 05/01/24 Range/Units 17:13 20:29 06:07 Creatinine (0.66-1.25) mg/dL Glucose (74-99) mg/dL POC Glucose (mg/dL) 256 H 326 H 221 H (70-110) mg/dL C-Reactive Protein (<1.0) mg/dL 05/01/24 05/01/24 Range/Units 06:42 12:11 Creatinine 0.58 L (0.66-1.25) mg/dL Glucose 213 H (74-99) mg/dL POC Glucose (mg/dL) 239 H (70-110) mg/dL C-Reactive Protein 1.8 H (<1.0) mg/dL Microbiology - Last 24 Hours (Table) 04/25/24 20:45 Blood Culture - Final Blood 04/25/24 21:00 Blood Culture - Final Blood 04/25/24 21:00 Anaerobic Culture - Final Abdomen 04/27/24 20:13 Anaerobic Culture - Preliminary Abdomen 04/27/24 20:13 Gram Stain - Final Abdomen Wound Culture - Final Staphylococcus aureus Assessment and Plan (1) Abdominal wall abscess Current Visit: Yes Status: Acute Code(s): L02.211 - CUTANEOUS ABSCESS OF ABDOMINAL WALL SNOMED Code(s): 59324412 (2) Abdominal wall cellulitis Current Visit: Yes Status: Acute Code(s): L03.311 - CELLULITIS OF ABDOMINAL WALL SNOMED Code(s): 23350680 (3) Leukocytosis Current Visit: Yes Status: Acute Code(s): D72.829 - ELEVATED WHITE BLOOD CELL COUNT, UNSPECIFIED SNOMED Code(s): 505168338 Plan: 1patient presented to hospital with right lower quadrant abdominal wall pain swelling and redness with the area of induration and some in fluid collection on the ultrasound concerning for abscess and cellulitis likely from gram-positive skin norma 2-local culture currently growing MSSA blood culture has been negative 3-patient is s/p surgical debridement and drainage with cultures currently also growing Staph aureus 4-patient to continue cefazolin 2 g every 8 hours for the 24 to 48 hours 5patient with new area of physical cellulitis to the thigh and leg question of shingles as they are in the distribution of L4 dermatome viral swab for VZV PCR has been obtained Valtrex has been added minimal improvement comparing to yesterday to continue I will reevaluate the patient tomorrow Dictation was produced using [employer] dictation software. please excuse any grammatical, word or spelling errors. Time with Patient: Less than 30
--- NOTE | 2024-05-01 15:27 | P.PN ---
Subjective Progress Note Date: 05/01/24 Hospital course: Patient is a 48-year-old male with a past medical history of hypertension, atrial tachycardia, GERD, type II khe-pjnrhjk-ivfdewwcv diabetes mellitus, and depression. He presented to the hospital on 04/25/2024 secondary to skin abscess and concerns of surrounding infection. Upon arrival to our facility, patient underwent evaluation in the emergency department. Vital signs upon arrival show blood pressure 131/86, heart rate 108, respiratory rate 22, temp 98.0 F, and SpO2 of 97% on room air. Labs completed and reviewed. CBC showing leukocytosis with WBC count of 12.2. BMP showing hyponatremia with sodium 134 and hypocarbia with bicarb of 20 with mild prerenal azotemia with BUN of 21. Blood glucose was elevated at 348. Liver profile unremarkable. Urinalysis positive for ketones and glucose negative for infection. Patient was admitted under services with consultation to general surgery and infectious disease. Abdominal ultrasound was completed showing subcutaneous edema with early abscess formation underwent definitive focal fluid collection reported. Patient underwent I&D of abdominal wall mass on 04/27/2024. Cultures sent to lab for analysis. Physical exam: Patient seen and fully evaluated at the bedside this morning. Postop day 4 status post abdominal I&D. Abdominal wall cellulitis/erythema nearly improved since I&D completion, I&D sutures intact and [place] drain in place. Rash to right anterior thigh and medial tobin showing significant worsening of erythema and was again outlined with skin marker. Vital signs reviewed and stable. General: Nontoxic, no distress and appears stated age. Derm: Skin warm and dry, normal coloration for ethnicity. Abdominal wall cellulitis showing significant improvement of erythema since I&D completion, s utures intact and [place] drain in place. Patient also has rash with blisters and moderate erythema/surrounding cellulitis to right anterior thigh and medial tobin region. Head: Atraumatic, normocephalic and symmetric. Eyes: EOMs intact, no lid lag, and anicteric sclera Mouth: no lip lesions, mucus membranes moist Cardiovascular: regular rate and rhythm with normal S1S2, no murmur, positive posterior tibial pulses bilaterally, and cap refill < 2 seconds. Lungs: Respirations even, regular, and unlabored on room air. Lungs CTA bilaterally, no rhonchi, no rales, no wheezing, and no accessory muscle usage. Abdominal: soft, nontender to palpation, no guarding, no appreciable organomegaly. Ext: ROM intact. No gross muscle atrophy, no edema, no contractures Neuro: Speech clear, face symmetrical and CN II-XII grossly intact with no noted focal neuro deficits Psych: Alert and oriented to person, place, time, and situation. Appropriate and pleasant affect. Assessment and Plan of Care: Abdominal abscess with surrounding abdominal wall cellulitis, MSSA Blistered rash with surrounding erythema/cellulitis to Right anterior thigh and medial tobin region Poorly controlled diabetes mellitus with hyperglycemia, hemoglobin A1c 11.5% Leukocytosis -Continue IV antibiotics with cefazolin 2 g every 8 hours. -Infectious disease following, discussed patient in depth with infectious disease provider including newly developed rash with blisters. -Continue Valtrex 1000 mg every 8 hours pending results of VZV DNA by PCR culture. -General surgery following and took patient for I&D on 04/27/2024 and recommending removal of [place] drain after no drainage for 2 to 3 days. -Patient underwent I&D of abdominal wall mass on 04/27/2024. Cultures sent to lab for analysis and positive for MSSA -Symptomatic care and pain management with Tylenol 650 mg every 6 hours as needed for mild pain/fever, [place] 5/325 mg every 4 hours as needed for moderate pain, and Dilaudid 0.5 mg IVP every 3 hours as needed for severe pain. -Patient on Levemir 10 units nightly and to continue Levemir 15 units daily with glycemic protocol and NovoLog sliding scale. -Hemoglobin A1c 11.5% -CRP elevated at 2.6. -Blood culture showing no growth to date. Hypomagnesemia Magnesium 1.6. Orders placed for magnesium sulfate 2 g IVPB. Will continue to monitor for improvement/resolution with repeat magnesium levels with a.m. labs. Will place additional orders as indicated based upon these findings. History of atrial tachycardia -Continue daily medication regimen with metoprolol succinate 50 mg daily. Hypertension -Continue daily medication regimen with lisinopril 20 mg daily and metoprolol 50 mg daily. GERD -Continue daily medication regimen with Protonix 40 mg daily. Depression -Continue daily medication regimen with Zoloft 100 mg daily. Data and imaging reviewed: -Vital signs reviewed. Blood pressure again soft this morning at 95/60, heart rate 70, respiratory rate 14, temp 98.1 F, and SpO2 of 100% on room air. -Morning labs completed and reviewed. I&D Wound Cultures positive for MSSA. CBC unremarkable. BMP unremarkable with the exception of elevated blood glucose of 213 but significantly improved since placing patient on Levemir 10 units nig htly and 15 units daily. Magnesium slightly low at 1.6. Liver profile unremarkable. And CRP elevated at 1.8. CODE STATUS: Full code DVT prophylaxis: Lovenox Anticipated discharge date: Pending clinical course Anticipated discharge place: Home Patient was seen independently by Nurse Pracitioner. This document was prepared using [employer] dictation software. Please allow for errors in pearl technician, while rare they do occur. I reviewed the documentation as provided by the CASEY above, who is the original author of this note. I agree with the documented assessment and plan, with the following changes: none Objective - Vital Signs Vital signs: Vital Signs Temp 98.1 F 05/01/24 07:00 Pulse 70 05/01/24 07:00 Resp 14 05/01/24 07:00 BP 95/60 05/01/24 07:00 Pulse Ox 100 05/01/24 07:00 FiO2 Intake & Output 04/30/24 05/01/24 05/01/24 18:59 06:59 18:59 Intake Total 572 Balance 572 Intake: Oral 572 Other: Voiding Method Toilet Toilet # Voids 2 2 - Labs CBC & Chem 7: 05/02/24 06:13 05/02/24 06:13 Labs: Abnormal Lab Results - Last 24 Hours (Table) 04/30/24 04/30/24 04/30/24 Range/Units 12:10 17:13 20:29 Creatinine (0.66-1.25) mg/dL Glucose (74-99) mg/dL POC Glucose (mg/dL) 235 H 256 H 326 H (70-110) mg/dL C-Reactive Protein (<1.0) mg/dL 05/01/24 05/01/24 Range/Units 06:07 06:42 Creatinine 0.58 L (0.66-1.25) mg/dL Glucose 213 H (74-99) mg/dL POC Glucose (mg/dL) 221 H (70-110) mg/dL C-Reactive Protein 1.8 H (<1.0) mg/dL Microbiology - Last 24 Hours (Table) 04/25/24 20:45 Blood Culture - Final Blood 04/25/24 21:00 Blood Culture - Final Blood 04/25/24 21:00 Anaerobic Culture - Final Abdomen 04/27/24 20:13 Anaerobic Culture - Preliminary Abdomen 04/27/24 20:13 Gram Stain - Final Abdomen Wound Culture - Final Staphylococcus aureus
[2024-05-01] MEDS: MAGNESIUM SULFATE-D5W PMX 1 GM in DEXTROSE/WATER 1 100ML.BAG IVPB SCH (15:42)
--- NOTE | 2024-05-01 17:04 | US ---
EXAMINATION TYPE: US extremity nonvasc mass RT DATE OF EXAM: 05/01/2024 COMPARISON: NONE CLINICAL INDICATION: Male, 48 years old with history of US abscess to R anterior thigh R medial miranda n; Rule out abscess in thigh and tobin. TECHNIQUE: Scanned right thigh and right medial tobin. With grayscale and color Doppler imaging FINDINGS: Scanned areas of concern. Edema channels seen within the right thigh and right medial tobin. No measurable fluid collection seen. IMPRESSION: Subcutaneous edema, no organizing fluid collection to suggest abscess.
[2024-05-01 17:16] LABS: Glucose,Whole Blood 351 mg/dL (70-110)
[2024-05-01 20:48] LABS: Glucose,Whole Blood 202 mg/dL (70-110)
[2024-05-02 06:33] LABS: Glucose,Whole Blood 227 mg/dL (70-110)
--- NOTE | 2024-05-02 07:59 | P.PN ---
Subjective Progress Note Date: 05/02/24 CHIEF COMPLAINT: Abdominal wall cellulitis HISTORY OF PRESENT ILLNESS: The patient is a 48 year old male status post debridement of abdominal wall. He has worsening new eruptions of the right lower extremity involving the thigh and lower leg. No fevers or chills. REVIEW OF ORGAN SYSTEMS: CONSTITUTIONAL: No fevers or chills. Body mass index 36.8, morbid obesity. CARDIOVASCULAR: Denies any chest pain, palpitations, or recent heart attacks. Hypertensive heart disease. GASTROINTESTINAL: Denies fatty food intolerance. Denies change in bowel habits and gas bloat. ENDOCRINE: Denies current thyroid disorders. Has diabetes type 2. PHYSICAL EXAM: VITALS: Reviewed CONSTITUTIONAL: Well developed and in no acute distress. EYES: Conjuctivae without sclera icterus. Extraocular movements grossly intact. HEAD, EARS, NOSE, THROAT: Moist buccal mucosa. Head is atraumatic, normocephalic. Hears conversational speech. No nasal drainage. RESPIRATORY: Non-labored respirations and equal bilateral excursions. No gross wheezes. CARDIOVASCULAR: Palpable 2+ radial pulses. ABDOMEN: Decreased cellulitis and drainage along the right lower abdomen incision. [place] drain intact. MUSCULOSKELETAL: No clubbing cyanosis or edema SKIN: Incision abdomen clean. Serosanguineous dressing. Resolved cellulitis. New blistering eruptions of the right medial thigh and right medial lower leg, 8 cm and 4 cm respectively NEUROLOGIC: Cranial nerves II through XII grossly intact. No focal or laterali zing signs. PSYCH: Appropriate affect. Alert and oriented to person, place and time. Displays appropriate insight. CLINCAL LABS: Reviewed. WBC normal ASSESSMENT: 1. Abdominal wall cellulitis, right lower quadrant 2. Sepsis due to abdominal wall cellulitis 3. Diabetes type 2 with hyperglycemia 4. Morbid obesity due to excess calories, BMI 36.8 5. Hypertensive heart disease. 6. Methicillin sensitive Staph aureus 7. Shingles, new along the right medial thigh and right medial lower leg PLAN: 1. Continue [place] drain until no drainage from the abdominal wound present. 2. Acute surgical intervention for new blistering eruptions of the right thigh and right lower leg. Objective - Vital Signs Vital signs: Vital Signs Temp 97.9 F 05/02/24 02:00 Pulse 60 05/02/24 02:00 Resp 18 05/02/24 02:00 BP 100/63 07/10/24 02:00 Pulse Ox 96 05/02/24 02:00 FiO2 Intake & Output 05/01/24 05/02/24 05/02/24 18:59 06:59 18:59 Intake Total 1525 Balance 1525 Intake: Oral 1525 Other: Voiding Method Toilet # Voids 1 2 - Labs CBC & Chem 7: 05/01/24 06:42 05/01/24 06:42 Labs: Abnormal Lab Results - Last 24 Hours (Table) 05/01/24 05/01/24 05/01/24 Range/Units 12:11 17:13 20:47 POC Glucose (mg/dL) 239 H 351 H 202 H (70-110) mg/dL 05/02/24 Range/Units 06:32 POC Glucose (mg/dL) 227 H (70-110) mg/dL Microbiology - Last 24 Hours (Table) 04/25/24 20:45 Blood Culture - Final Blood 04/25/24 21:00 Blood Culture - Final Blood
[2024-05-02 08:18] VITALS: BP 110/75; PULSE 75; RESP 15; TEMP 98
[2024-05-02 12:11] LABS: HCT 38.6 % (39.6-50.0); HGB 12.8 g/dL (13.0-17.0); MCH 28.8 pg (27.0-32.0); MCHC 33.2 g/dL (32.0-37.0); MCV 86.7 FL (80.0-97.0); Mean Platelet Volume 10.6 FL (9.5-12.2); NRBC Per 100 WBC 0 X 10*3/uL (0.00-0.01); Platelet Count 245 X 10*3/uL (140-440); RBC 4.45 X 10*6/uL (4.40-5.60); RDW 12.9 % (11.5-14.5); WBC 8.54 X 10*3/uL (4.50-10.00)
[2024-05-02 12:16] LABS: Glucose,Whole Blood 229 mg/dL (70-110)
--- NOTE | 2024-05-02 12:24 | P.PN ---
Subjective Progress Note Date: 05/02/24 Principal diagnosis: Reason for follow-up abdominal wall abscess and cellulitis Patient is a 48-year-old male with a past medical history significant for diabetes mellitus hypertension asthma depression, patient presenting to the hospital for evaluation of right lower abdominal wall pain swelling and redness has been diagnosed with abscess and cellulitis. Patient did have excision of the right lower quadrant abdominal wall deep subcutaneous tumor and drainage of the abscess procedure completed on 04/27/2024. On today's evaluation that is 05/02/2024,the patient remains to be afebrile, patient is on room air not requiring supplemental oxygen and denies any shortnes s of breath no chest pain or cough.Patient denies having any nausea or vomiting, no abdominal pain and no diarrhea, the patient lesion to the right thigh and right leg has decreased in intensity feeling better wants to go home. Patient white count is 8.54 Objective - Vital Signs Vital signs: Vital Signs Temp 98.0 F 05/02/24 07:00 Pulse 75 05/02/24 07:00 Resp 15 05/02/24 07:00 BP 110/75 05/02/24 07:00 Pulse Ox 95 05/02/24 07:00 FiO2 Intake & Output 05/01/24 05/02/24 05/02/24 18:59 06:59 18:59 Intake Total 1525 Balance 1525 Intake: Oral 1525 Other: Voiding Method Toilet # Voids 1 2 - Exam GENERAL DESCRIPTION: Middle-age male up in the chair in no distress RESPIRATORY SYSTEM: Unlabored breathing , decreased breath sounds at bases HEART: S1 S2 regular rate and rhythm , ABDOMEN: Soft , right lower quadrant swelling redness slightly decreased minimal drainage on the dressing EXTREMITIES: Right thigh and lower leg did have areas of vesicle and redness has decreased in intensity no drainage - Labs CBC & Chem 7: 05/02/24 06:13 05/01/24 06:42 Labs: Abnormal Lab Results - Last 24 Hours (Table) 05/01/24 05/01/24 05/01/24 Range/Units 12:11 17:13 20:47 POC Glucose (mg/dL) 239 H 351 H 202 H (70-110) mg/dL 05/02/24 Range/Units 06:32 POC Glucose (mg/dL) 227 H (70-110) mg/dL Assessment and Plan (1) Abdominal wall abscess Current Visit: Yes Status: Acute Code(s): L02.211 - CUTANEOUS ABSCESS OF ABDOMINAL WALL SNOMED Code(s): 72190091 (2) Abdominal wall cellulitis Current Visit: Yes Status: Acute Code(s): L03.311 - CELLULITIS OF ABDOMINAL WALL SNOMED Code(s): 70145702 (3) Leukocytosis Current Visit: Yes Status: Acute Code(s): D72.829 - ELEVATED WHITE BLOOD CELL COUNT, UNSPECIFIED SNOMED Code(s): 106375197 Plan: 1patient presented to hospital with right lower quadrant abdominal wall pain swelling and redness with the area of induration and some in fluid collection on the ultrasound concerning for abscess and cellulitis likely from gram-positive skin norma 2-local culture currently growing MSSA blood culture has been negative 3-patient is s/p surgical debridement and drainage with cultures currently also growing Staph aureus 4-patient has shown improvement as far as abdominal wall abscess cellulitis consult will finish therapy with oral Keflex prescription sent to the pharmacy 5patient with new area of physical cellulitis to the thigh and leg question of shingles as they are in the distribution of L4 dermatome viral swab for VZV PCR has been obtained Valtrex has been added minimal improvement with Valtrex still waiting for the VZV PCR patient wants to go home we will give him a 7-day course of oral Valtrex and close outpatient follow-up Dictation was produced using [employer] dictation software. please excuse any grammatical, word or spelling errors. Time with Patient: Less than 30
[2024-05-02 12:30] LABS: Magnesium 1.8 mg/dL (1.5-2.4)
[2024-05-02 13:04] LABS: ALT 31 U/L (10-49); AST 28 U/L (14-35); Albumin 3.8 g/dL (3.8-4.9); Albumin/Globulin Ratio 1.31 Ratio (1.60-3.17); Alkaline Phosphatase 90 U/L (41-126); BUN/Creat Ratio 22.38 Ratio (12.00-20.00); Blood Urea Nitrogen 17.9 mg/dL (9.0-27.0); Calcium 9.2 mg/dL (8.7-10.3); Carbon Dioxide 21.7 mmol/L (21.6-31.8); Chloride 103 mmol/L (96-109); Globulin 2.9 g/dL (1.6-3.3); Glucose 240 mg/dL (70-110); Potassium 4.7 mmol/L (3.5-5.5); Sodium 137 mmol/L (135-145); Total Bilirubin 0.4 mg/dL (0.3-1.2); Total Protein 6.7 g/dL (6.2-8.2)
--- NOTE | 2024-05-02 13:20 | P.DS ---
Providers Date of admission: 04/25/24 21:40 Attending physician: Karina Perez MD Consults: 04/26/24 00:27 Consult Physician Urgent Consulting Provider: Mayda Smith Consult Reason/Comments: cellulitis Do you want consulting provider notified?: Yes 04/26/24 09:09 Consult Physician Urgent Consulting Provider: Estefany Marcelino Consult Reason/Comments: RL abdominal ulcer with suspected abcess Do you want consulting provider notified?: Yes 04/26/24 13:55 Consult Physician Routine Consulting Provider: [facility] Consult Reason/Comments: [facility] Do you want consulting provider notified?: Yes Primary care physician: Amy Ruiz DO Hospital Course: Discharge Diagnosis Abdominal abscess with surrounding abdominal wall cellulitis, MSSA Blistered rash with surrounding erythema/cellulitis to Right anterior thigh and medial tobin region Poorly controlled diabetes mellitus with hyperglycemia, hemoglobin A1c 11.5% Leukocytosis Hypomagnesemia History of atrial tachycardia Hypertension GERD Depression Hospital course: Patient is a 48-year-old male with a past medical history of hypertension, atrial tachycardia, GERD, type II [id number] diabetes mellitus, and depression. He presented to the hospital on 04/25/2024 secondary to skin abscess and concerns of surrounding infection in the right lower quadrant of his abdomen. Upon arrival to our facility, patient underwent evaluation in the emergency department. Vital signs upon arrival show blood pressure 131/86, heart rate 108, respiratory rate 22, temp 98.0 F, and SpO2 of 97% on room air. Labs completed and reviewed. CBC showing leukocytosis with WBC count of 12.2. BMP showing hyponatremia with sodium 134 and bicarb of 20 with mild prerenal azotemia with BUN of 21. Blood glucose was elevated at 348. Liver profile unremarkable. Urinalysis positive for ketones and glucose negative for infection. Patient was admitted under services with consultation to general surgery and infectious disease. Abdominal ultrasound was completed showing subcutaneous edema with early abscess formation underwent definitive focal fluid collection reported. Patient underwent I&D of abdominal wall mass on 04/27/2024. Cultures grew MSSA. Patient was then cleared for discharge by both general surgery and infectious disease. Patient was discharged on Keflex for 10 more days. Patient also did develop shingles in his right lower extremity so was also started on Valtrex. Patient's hemoglobin A1c was poorly controlled his A1c was 11.5. Patient only on metformin. Patient will be started on glipizide at home and Lantus 10 units at bedtime. Started to follow-up with his PCP for management of his diabetes mellitus. Physical exam General examination - Alert and Oriented 3 in NAD Heart - + S1S2 no murmurs Lungs - Clear to auscultation Abdomen soft NT ND +ve BS, Right lower quadrant incision with mild surrounding erythema and a [place] drain. Dressing on top of the surgical incision had some drainage Extremities - No edema, papular rash on right lower extremity CRAP GAME [employer]OX PERSON - Moving all 4 extremities spontaneously Psych - Calm and cooperative Patient Condition at Discharge: Good Plan - Discharge Summary New Discharge Prescriptions: New Cephalexin [Keflex] 500 mg PO Q8HR 10 Days #30 cap glipiZIDE 5 mg PO BID 30 Days #60 tab Insulin Glargine,Hum.rec.anlog [Lantus Solostar Pen] 10 units SQ HS 30 Days #10 ml valACYclovir HCL [Valtrex] 1,000 mg PO TID #21 tablet Continue Ibuprofen [Motrin Ib] 800 mg PO Q8H PRN PRN Reason: Pain metFORMIN HCL [Glucophage] 1,000 mg PO AC-BID Metoprolol Succinate [Toprol XL] 50 mg PO DAILY Magnesium(Unknown Dose) 1 tab PO DAILY PRN PRN Reason: leg cramps Sertraline [Zoloft] 100 mg PO DAILY Omeprazole Magnesium [PriLOSEC OTC] 20 mg PO DAILY Multivitamins, Thera [Multivitamin (formulary)] 1 tab PO DAILY lisinopriL [Zestril] 20 mg PO DAILY Discharge Medication List Ibuprofen [Motrin Ib] 800 mg PO Q8H PRN 04/26/24 [History] Magnesium(Unknown Dose) 1 tab PO DAILY PRN 04/26/24 [History] Metoprolol Succinate [Toprol XL] 50 mg PO DAILY 04/26/24 [History] Multivitamins, Thera [Multivitamin (formulary)] 1 tab PO DAILY 04/26/24 [History] Omeprazole Magnesium [PriLOSEC OTC] 20 mg PO DAILY 04/26/24 [History] Sertraline [Zoloft] 100 mg PO DAILY 04/26/24 [History] lisinopriL [Zestril] 20 mg PO DAILY 04/26/24 [History] metFORMIN HCL [Glucophage] 1,000 mg PO AC-BID 04/26/24 [History] Cephalexin [Keflex] 500 mg PO Q8HR 10 Days #30 cap 05/02/24 [Rx] Insulin Glargine,Hum.rec.anlog [Lantus Solostar Pen] 10 units SQ HS 30 Days #10 ml 05/02/24 [Rx] glipiZIDE 5 mg PO BID 30 Days #60 tab 05/02/24 [Rx] valACYclovir HCL [Valtrex] 1,000 mg PO TID #21 tablet 05/02/24 [Rx] Follow up Appointment(s)/Referral(s): Estefany Marcelino MD [STAFF PHYSICIAN] - 05/15/24 3:00 pm Amy Ruiz DO [Primary Care Provider] - 1-2 days Mayda Smith MD [STAFF PHYSICIAN] - 1 Week Patient Instructions/Handouts: Abscess Incision and Drainage (GEN) Activity/Diet/Wound Care/Special Instructions: May shower but cover incision with Tegaderm or Saran wrap. Cleanse incision with antibacterial soap and hydrogen peroxide daily. Cover with 4 x 4 gauze. No soaking in bathtub or swimming until cleared by surgeon. Discharge Disposition: HOME SELF-CARE
--- NOTE | 2024-05-03 15:36 | CDI ---
Documentation Clarification Form Date: 05/03/2024 02:49:12 PM From: Paola Nowak RN, CCDS Phone: [phone] Admit Date: 04/25/2024 09:40:00 PM Patient Name: Candido Bennett Visit Number: [id number] Discharge Date: 05/02/2024 02:27:00 PM ATTENTION: The Clinical Documentation Specialists (CDI) and [facility] Coding Staff appreciate your assistance in clarifying documentation. Please respond to the clarification below the line at the bottom and electronically sign. The CDI & [facility] Coding staff will review the response and follow-up if needed. Please note: Queries are made part of the Legal Health Record. If you have any questions, please contact the author of this message via ITS. Dr. Karina Perez Cellulitis and Diabetes is documented in the H&P and progress notes. Additional clarification regarding the type of cellulitis is requested. History/risk factors: Diabetes, asthma and HTN. Presented with complaints of a skin ulcer on his right lower abdomen. The surrounding area gradually became more red over the past 2 days and he noticed a swelling in the region which eventually burst earlier today, with purulent drainage. Clinical Indicators: H&P: "Patient does report that his diabetes is somewhat poorly controlled and that his last A1c was around 10. Right lower abdomen cellulitis with likely abscess following suspected insect bite. Chronic conditions: Type II DM, poorly controlled." 04/26 IM: "Abdominal abscess with surrounding abdominal wall cellulitis. Poorly controlled diabetes mellitus with hyperglycemia. Leukocytosis, worsening. Abdominal ultrasound was completed showing subcutaneous edema with early abscess formation." Discharge summary: "Abdominal abscess with surrounding abdominal wall cellulitis, MSSA. Blistered rash with surrounding erythema/cellulitis to right anterior thigh and medial tobin region. Poorly controlled diabetes mellitus with hyperglycemia, hemoglobin A1c 11.5%." 04/25-05/02 serum glucose: [phone] Treatment: S/P I&D of abdominal wall abscess on 04/27; IV Cefazolin 2gm Q8H 04/29- 05/02; IV Rocephin 2gm Q24H; IV Vancomycin 2gm x1 on 04/26; IV Vancomycin 1750mg Q8H 04/26-04/27; IV Vancomycin 1750mg Q12H 04/27-04/29; Levemir 15 units SC daily @0700 04/28-05/02; Levemir 10 units SQ HS 04/30-05/01 Please clarify the etiology of the Cellulitis, if known: [ ] Cellulitis is a diabetic skin complication [ ] Cellulitis is not a diabetic skin complication [ ] Other, please specify: [ ] Unable to determine MTDD
--- NOTE | 2024-05-14 11:41 | CDI ---
Documentation Clarification Form Date: 05/11/2024 01:24:00 PM From: Paola Nowak RN, CCDS Phone: [phone] Admit Date: 04/25/2024 09:40:00 PM Patient Name: Candido Bennett Visit Number: [id number] Discharge Date: 05/02/2024 02:27:00 PM ATTENTION: The Clinical Documentation Specialists (CDI) and [facility] Coding Staff appreciate your assistance in clarifying documentation. Please respond to the clarification below the line at the bottom and electronically sign. The CDI & [facility] Coding staff will review the response and follow-up if needed. Please note: Queries are made part of the Legal Health Record. If you have any questions, please contact the author of this message via ITS. Dr. Tata Muñoz Cellulitis and Diabetes is documented in the H&P and progress notes. Additional clarification regarding the type of cellulitis is requested. History/risk factors: Diabetes, asthma and HTN. Presented with complaints of a skin ulcer on his right lower abdomen. The surrounding area gradually became more red over the past 2 days and he noticed a swelling in the region which eventually burst earlier today, with purulent drainage. Clinical Indicators: H&P: "Patient does report that his diabetes is somewhat poorly controlled and that his last A1c was around 10. Right lower abdomen cellulitis with likely abscess following suspected insect bite. Chronic conditions: Type II DM, poorly controlled." 04/26 IM: "Abdominal abscess with surrounding abdominal wall cellulitis. Poorly controlled diabetes mellitus with hyperglycemia. Leukocytosis, worsening. Abdominal ultrasound was completed showing subcutaneous edema with early abscess formation." Discharge summary: "Abdominal abscess with surrounding abdominal wall cellulitis, MSSA. Blistered rash with surrounding erythema/cellulitis to right anterior thigh and medial tobin region. Poorly controlled diabetes mellitus with hyperglycemia, hemoglobin A1c 11.5%." 04/25-05/02 serum glucose: [phone] Treatment: S/P I&D of abdominal wall abscess on 04/27; IV Cefazolin 2gm Q8H 04/29- 05/02; IV Rocephin 2gm Q24H; IV Vancomycin 2gm x1 on 04/26; IV Vancomycin 1750mg Q8H 04/26-04/27; IV Vancomycin 1750mg Q12H 04/27-04/29; Levemir 15 units SC daily @0700 04/28-05/02; Levemir 10 units SQ HS 04/30-05/01 Please clarify the etiology of the Cellulitis, if known: [ X ] Cellulitis is a diabetic skin complication [ ] Cellulitis is not a diabetic skin complication [ ] Other, please specify: [ ] Unable to determine MTDD
== END 2024-05-02 14:27 | disposition home or self-care (01) | DRG 638 ==
LOC: EC 19:31 → 6NMEDSUR 21:40 → OBSVTOIN 21:40 → 6NMEDSUR 04-26 00:48
PROVIDERS: ADMIT Internal Medicine; ATTEND Internal Medicine
PROC: 0J980ZZ Drainage of Abdomen Subcutaneous Tissue and Fascia, Open Approach (ICD-10-PCS; principal; 2024-04-27 07:30)
DX: E11.628 Type 2 diabetes mellitus with other skin complications (principal); E87.1 Hypo-osmolality and hyponatremia; L02.211 Cutaneous abscess of abdominal wall; L03.115 Cellulitis of right lower limb; L03.311 Cellulitis of abdominal wall; B02.9 Zoster without complications; B95.61 Methicillin susceptible Staphylococcus aureus infection as the cause of diseases classified elsewhere; E66.01 Morbid (severe) obesity due to excess calories; E11.65 Type 2 diabetes mellitus with hyperglycemia; E83.42 Hypomagnesemia; F32.A Depression, unspecified; W57.XXXA Bitten or stung by nonvenomous insect and other nonvenomous arthropods, initial encounter; K21.9 Gastro-esophageal reflux disease without esophagitis; L98.499 Non-pressure chronic ulcer of skin of other sites with unspecified severity; Z68.36 Body mass index [BMI] 36.0-36.9, adult; Z79.4 Long term (current) use of insulin; Z79.84 Long term (current) use of oral hypoglycemic drugs; Z79.899 Other long term (current) drug therapy; Z82.49 Family history of ischemic heart disease and other diseases of the circulatory system
CPT/HCPCS: 36415; 76705; 80053; 80202; 81003; 82565; 83036; 83605; 83735; 85025; 85027; 86140; 87040; 87070; 87075; 87077; 87186; 87205; 87798; 88307; 96360; 99284